=== PATIENT | female | born 1965 | race Caucasian/White ===

== ENCOUNTER → 2017-01-26 | Outpatient (CLI) | payer BC ==
[2017-01-26 10:54] LABS: CHLORIDE,CL 107 mmol/L (98-110); SODIUM,NA 142 mmol/L (136-146)
== END ==
LOC: MW.CHFP 09:49
PROVIDERS: ATTEND Family Medicine
DX: Z00.00 Encounter for general adult medical examination without abnormal findings (principal); D64.9 Anemia, unspecified; E53.8 Deficiency of other specified B group vitamins; Z98.890 Other specified postprocedural states; Z86.39 Personal history of other endocrine, nutritional and metabolic disease
CPT/HCPCS: 36415; 80053; 80061; 82607; 82652; 82746; 83036; 83550; 84443; 85027

== ENCOUNTER → 2017-02-08 | Outpatient (CLI) | payer BC ==
--- NOTE | 2017-02-08 14:22 | CT ---
CT of the abdomen and pelvis without contrast. HISTORY: Pain TECHNIQUE: Axial CT images were obtained of the abdomen and pelvis without contrast. Coronal and sag ittal reconstructions obtained. FINDINGS: The lung bases are clear, no pleural effusion. The liver, spleen, and pancreas appear unremarkable for noncontrast examination. There is a 2.8 x 1 .8 cm left adrenal adenoma. Cholelithiasis without evidence of cholecystitis. There is no bulky retr operitoneal lymphadenopathy. No abdominal ascites. Postsurgical changes are noted secondary to gastr ic bypass. There are several small fat-containing midline ventral hernias noted. There are no calcifications noted within the kidneys or along the courses of the ureters bilaterally . The large and small bowel are normal in caliber without evidence of obstruction. The appendix appear s normal. There is no bulky pelvic lymphadenopathy. No free fluid. No free air. The urinary bladder appears normal. Mild bilateral sacroiliitis. Mild degenerative changes noted within the lower lumbar spine. IMPRESSION: 1. No acute findings within the abdomen or pelvis. 2. Postsurgical changes noted secondary to gastric bypass. 3. There are 2 midline small ventral fat-containing hernias. 4. Cholelithiasis without evidence of cholecystitis. Line 5. Small left adrenal adenoma.
== END | disposition home or self-care (01) ==
LOC: MW.DI 12:47
PROVIDERS: ATTEND Family Medicine
DX: R10.9 Unspecified abdominal pain (principal); K43.2 Incisional hernia without obstruction or gangrene; K80.20 Calculus of gallbladder without cholecystitis without obstruction; D35.00 Benign neoplasm of unspecified adrenal gland; Z98.84 Bariatric surgery status
CPT/HCPCS: 74176; 74176-26

== ENCOUNTER → 2017-02-09 | Outpatient (CLI) | payer BC ==
[2017-02-19 16:08] LABS: HPV 16 Not Detected (NOTDET); HPV 18 Not Detected (NOTDET)
== END ==
LOC: MW.CHFP 10:00
PROVIDERS: ATTEND Family Medicine
DX: Z00.00 Encounter for general adult medical examination without abnormal findings (principal); E11.9 Type 2 diabetes mellitus without complications
CPT/HCPCS: 87624; 93005; G0145

== ENCOUNTER → 2017-02-14 | Outpatient (CLI) | payer BC ==
--- NOTE | 2017-02-14 14:45 | MY ---
EXAMINATION: Bilateral digital mammography utilizing CAD. HISTORY: Screening exam. No comparisons. FINDINGS: Bilateral scattered fibroglandular densities. No suspicious calcifications, masses or ar chitectural distortions. No pathologic appearing lymph nodes, no abnormal skin thickening or nippl e inversion. CAD highlighted regions appear normal at this time. IMPRESSION: BI-RADS category I - negative mammogram. Continued screening according to ACR-ACS gu idelines suggested. THE FALSE-NEGATIVE RATE OF MAMMOGRAM IS APPROXIMATELY 10%. MANAGEMENT OF A PALPABLE ABNORMALITY MUST BE BASED UPON CLINICAL GROUNDS. SENSITIVITY FOR DETECTION OF ABNORMALITIES IN DENSE BREASTS IS LOW. NOTE: A letter will be sent to the patient regarding findings. [facility] [place] [phone] - FAX [phone]
== END ==
LOC: MW.MAM 09:09
PROVIDERS: ATTEND Family Medicine
DX: Z12.31 Encounter for screening mammogram for malignant neoplasm of breast (principal)
CPT/HCPCS: G0202; G0202-26

== ENCOUNTER → 2017-02-16 | Outpatient (CLI) | payer BC | LOC: MW.CHFP 14:22 | PROVIDERS: ATTEND Family Medicine | DX: D35.02 Benign neoplasm of left adrenal gland (principal) | CPT/HCPCS: 82384; 83835 ==

== ENCOUNTER 2018-12-02 07:33 | Inpatient (IN) | payer BC ==
[~2018-12-02 07:33] MED LIST: Acetaminophen 1,000 MG in Premix Bag 1 BAG IV SCH; Famotidine 20 MG/2 ML SDV IVPUSH SCH; Ketorolac 30 MG/ML SDV IVPUSH SCH; Ropivacaine 49.25 ML, Ketorolac 30 MG, EPINEPHrine 0.5 MG, cloNIDine 80 MCG in Sodium C... INJECT SCH; Scopolamine 1.5 MG Transdermal Patch TRDERM SCH
[2018-12-02] MEDS ORDERED: Tranexamic Acid 2,000 MG in Sodium Chloride 0.9% 100 ML IV ONE (08:00)
[2018-12-02] MEDS ORDERED: Ropivacaine 49.25 ML, Ketorolac 30 MG, EPINEPHrine 0.5 MG in Sodium Chloride 0.9% 49.25 ML INJECT SCH (08:00)
[2018-12-02] MEDS: Lactated Ringers 1,000 ML IV SCH ×2 (08:06→21:29)
[2018-12-02] MEDS ORDERED: Ondansetron 4 MG/2 ML SDV ONE (08:24)
[2018-12-02] MEDS ORDERED: fentaNYL 100 MCG/2 ML SDV ONE (08:24)
[2018-12-02] MEDS ORDERED: Midazolam 1 MG/ML 2 ML SDV ONE (08:24)
[2018-12-02] MEDS ORDERED: Dexamethasone 4 MG/ML 5 ML MDV ONE (08:24)
[2018-12-02] MEDS ORDERED: Lidocaine 2% 5 ML SDV ONE (08:24)
[2018-12-02] MEDS ORDERED: Ketorolac 30 MG/ML SDV ONE (08:24)
[2018-12-02] MEDS ORDERED: Propofol 200 MG/20 ML SDV ONE (08:25)
--- NOTE | 2018-12-02 08:46 | PCM.PREANE ---
Preanesthetic Assessment - Anesthesia/Transfusion/Family Hx Anesthesia History: Prior Anesthesia Without Reaction Family History of Anesthesia Reaction: No Transfusion History: No Prior Transfusion(s) Intubation History: Unknown - Review of Systems General: No Symptoms Pulmonary: No Symptoms Cardiovascular: No Symptoms Gastrointestinal: No Symptoms Neurological: No Symptoms Other: Reports: None - Physical Assessment O2 Sat by Pulse Oximetry: 96 Respiratory Rate: 16 Vital Signs: Last Vital Signs Temp 36.3 C 12/02/18 08:10 Pulse 66 12/02/18 08:10 Resp 16 12/02/18 08:10 BP 134/65 12/02/18 08:10 Pulse Ox 96 12/02/18 08:10 Height: 1.63 m Weight: 96.615 kg ASA Class: 3 Mental Status: Alert & Oriented x3 Airway Class: Mallampati = 3 Dentition: Reports: Dentures (upper) Thyro-Mental Finger Breadths: 2 Mouth Opening Finger Breadths: 3 ROM/Head Extension: Full Lungs: Clear to Auscultation, Normal Respiratory Effort Cardiovascular: Regular Rate, Regular Rhythm - Allergies Allergies/Adverse Reactions: Allergies Allergy/AdvReac Type Severity Reaction Status Date / Time No Known Allergies Allergy Verified 12/02/18 08:36 - Blood Blood Available: No - Anesthesia Plan Pre-Op Medication Ordered: None - Acknowledgements Anesthesia Type Planned: Spinal (general anesthesia back-up) Pt an Appropriate Candidate for the Planned Anesthesia: Yes Alternatives and Risks of Anesthesia Discussed w Pt/Guardian: Yes Pt/Guardian Understands and Agrees with Anesthesia Plan: Yes PreAnesthesia Questionnaire HEENT History: Reports: Other (See Below) Other HEENT History: uses reading glasses, has upper denture Cardiovascular History: Reports: None Respiratory History: Reports: Sleep Apnea Other Respiratory History: uses CPAP Gastrointestinal History: Reports: None Other Gastrointestinal History: GERD before weight loss- not now, has 2 abdominal incisional hernias, and ulcers Genitourinary History: Reports: None TANK HOOP BENDER History: Reports: Musculoskeletal History: Reports: Osteoarthritis Other Musculoskeletal History: hx of fx left wrist Neurological History: Reports: Concussion, Other (See Below) Other Neuro History: hx of motion sickness Psychiatric History: Reports: Depression Endocrine/Metabolic History: Reports: Obesity/BMI 30+ Other Endocrine/Metabolic History: denies diabetes Hematologic History: Reports: Anemia, B12 Deficiency Other Hematologic History: B12 deficiency in the past, currently iron deficient , just started iron supplement Immunologic History: Reports: None Oncologic (Cancer) History: Reports: None Dermatologic History: Reports: None - Infectious Disease History Infectious Disease History: Reports: Chicken Pox - Past Surgical History Head Surgeries/Procedures: Reports: None HEENT Surgical History: Reports: Tonsillectomy Cardiovascular Surgical History: Reports: None Respiratory Surgical History: Reports: None GI Surgical History: Reports: Bariatric Procedure Other GI Surgeries/Procedures: gastric bypass Female Surgical History: Reports: Section, Hysterectomy, Tubal Ligation Endocrine Surgical History: Reports: None Neurological Surgical History: Reports: None Musculoskeletal Surgical History: Reports: Knee Replacement (right 07/25), Other (See Below) Other Musculoskeletal Surgeries/Procedures:: Right RTCR Oncologic Surgical History: Reports: None - SUBSTANCE USE Smoking Status *Q: Current Every Day Smoker (1 10/09 ppd) Tobacco Use Within Last Twelve Months: Cigarettes Recreational Drug Use History: No - HOME MEDS Home Medications: Home Meds Ferrous Sulfate [Iron] 325 mg PO DAILY 08/07/18 [History] Acetaminophen/oxyCODONE [Percocet 325-5 MG] 1 - 2 tab PO Q4H PRN #60 tablet 03/25 [Rx] Cyanocobalamin (Vitamin B12) [Vitamin B12] 0.8 mg PO DAILY 11/27/18 [History] - CURRENT (IN HOUSE) MEDS Current Meds: Current Medications Famotidine (Pepcid) 40 mg IVPUSH ONARRIVE [facility] Last Admin: 12/02/18 08:07 Dose: 40 mg Acetaminophen 1,000 mg/ Premix 100 mls @ 400 mls/hr IV ONARRIVE [facility] Last Admin: 12/02/18 08:10 Dose: 400 mls/hr Lactated Ringer's (Ringers, Lactated) 1,000 mls @ 100 mls/hr IV ASDIRECTED [facility] Last Admin: 12/02/18 08:06 Dose: 100 mls/hr Ropivacaine 49.25 ml/Ketorolac Tromethamine 30 mg/Epinephrine HCl 0.5 mg/ Sodium Chloride 100 mls @ 3,000 mls/hr INJECT ASDIRECTED [facility] Ketorolac Tromethamine (Toradol) 30 mg IVPUSH ONARRIVE [facility] Last Admin: 12/02/18 08:08 Dose: 30 mg Scopolamine (Transderm-Scop) 1.5 mg TRDERM ONARRIVE [facility] Last Admin: 12/02/18 08:06 Dose: 1.5 mg Discontinued Medications Dexamethasone (Dexamethasone) Confirm Administered Dose 20 mg .ROUTE .STK-MED ONE Stop: 12/02/18 08:25 Fentanyl (Sublimaze) Confirm Administered Dose 100 mcg .ROUTE .STK-MED ONE Stop: 12/02/18 08:25 Ropivacaine 49.25 ml/Ketorolac Tromethamine 30 mg/Epinephrine HCl 0.5 mg/ Clonidine HCl 80 mcg/ Sodium Chloride 100 mls @ 50 mls/sec INJECT ASDIRECTED [facility] Tranexamic Acid 2,000 mg/ (Sodium Chloride) 120 mls @ 600 mls/hr IV ASDIRECTED ONE Stop: 12/02/18 08:11 Ketorolac Tromethamine (Toradol) Confirm Administered Dose 30 mg .ROUTE .STK- MED ONE Stop: 12/02/18 08:25 Lidocaine (Xylocaine-Mpf 2%) Confirm Administered Dose 5 ml .ROUTE .STK-MED ONE Stop: 12/02/18 08:25 Midazolam HCl (Versed 1 Mg/Ml) Confirm Administered Dose 2 mg .ROUTE .STK-MED ONE Stop: 12/02/18 08:25 Ondansetron HCl (Zofran) Confirm Administered Dose 8 mg .ROUTE .STK-MED ONE Stop: 12/02/18 08:25 Propofol (Diprivan 20 Ml) Confirm Administered Dose 600 mg .ROUTE .STK-MED ONE Stop: 12/02/18 08:26
[2018-12-02] MEDS ORDERED: Bisacodyl 10 MG Supp RECTAL PRN (11:19)
[2018-12-02] MEDS ORDERED: Sodium Chloride 0.9% 10 ML Syringe FLUSH PRN (11:19)
[2018-12-02] MEDS ORDERED: Aluminum Hydroxide/Magnesium Hydroxide/Simethicone Susp 30 ML Cup PO PRN (11:19)
[2018-12-02] MEDS ORDERED: Sodium Chloride 0.9% 2.5 ML Syringe FLUSH PRN (11:19)
[2018-12-02] MEDS ORDERED: diphenhydrAMINE 25 MG Cap PO PRN (11:19)
[2018-12-02] MEDS ORDERED: Ondansetron 4 MG/2 ML SDV IVPUSH PRN ×2 (11:19→11:24)
[2018-12-02] MEDS ORDERED: Docusate Sodium 100 MG Cap PO PRN (11:19)
[2018-12-02] MEDS ORDERED: Meperidine PF 25 MG/ML Syringe IVPUSH PRN (11:24)
[2018-12-02] MEDS ORDERED: Metoclopramide 10 MG/2 ML SDV IVPUSH PRN (11:24)
[2018-12-02] MEDS ORDERED: Morphine 4 MG/ML Syringe IVPUSH PRN (11:24)
[2018-12-02] MEDS ORDERED: hydrALAZINE 20 MG/ML SDV IVPUSH PRN ×2 (11:24)
[2018-12-02] MEDS ORDERED: HYDROmorphone 2 MG/ML SDV IVPUSH PRN (11:24)
[2018-12-02] MEDS ORDERED: Naloxone 0.4 MG/ML Syringe IVPUSH PRN (11:24)
[2018-12-02] MEDS ORDERED: Meperidine PF 25 MG/ML Syringe IV PRN (11:24)
[2018-12-02] MEDS ORDERED: Acetaminophen/HYDROcodone 325-5 MG Tab PO PRN (11:24)
[2018-12-02] MEDS ORDERED: Albuterol 0.083% 2.5 MG/3 ML Neb Soln NEB PRN (11:24)
[2018-12-02] MEDS ORDERED: Atropine 0.1 MG/ML 10 ML Syringe IVPUSH PRN (11:24)
[2018-12-02] MEDS ORDERED: Labetalol 20 MG/4 ML Syringe IVPUSH PRN (11:24)
[2018-12-02] MEDS ORDERED: Promethazine 25 MG/ML SDV IM PRN (11:24)
[2018-12-02] MEDS ORDERED: Scopolamine 1.5 MG Transdermal Patch TRDERM PRN (11:24)
[2018-12-02] MEDS ORDERED: fentaNYL 100 MCG/2 ML SDV IVPUSH PRN (11:24)
[2018-12-02] MEDS ORDERED: Ketorolac 30 MG/ML SDV IVPUSH SCH (11:30)
[2018-12-02] MEDS ORDERED: Acetaminophen 1,000 MG in Premix Bag 1 BAG IV SCH (11:30)
--- NOTE | 2018-12-02 11:58 | PCM.OPNOTE ---
- General Post-Op/Procedure Note Date of Surgery/Procedure: 12/02/18 Operative Procedure(s): L TKA Post-Op Diagnosis: DJD left knee Anesthesia Technique: Moderate Sedation, Spinal Primary Surgeon: Yaneth Wall Splunk Architect: Alessia Escobedo Splunk Architect: Trini [place] EBL in mLs: 50 Condition: Good Free Text/Narrative:: tt=41 min #[id number]
[2018-12-02] MEDS: Morphine PF 30 MG/30 ML PCA Vial IV PRN ×2 (12:06→21:35)
[2018-12-02] MEDS: ceFAZolin 2 GM in Premix Bag 1 BAG IV SCH ×3 (13:17→18:33)
[2018-12-02] MEDS: Ketorolac 30 MG/ML SDV IVPUSH SCH ×2 (14:05→18:30)
[2018-12-02] MEDS: Acetaminophen 1,000 MG in Premix Bag 1 BAG IV SCH ×2 (14:05→18:30)
--- NOTE | 2018-12-02 14:10 | OR ---
SURGEON: Yaneth Wall MD DATE OF PROCEDURE: 12/02/2018 PREOPERATIVE DIAGNOSIS: Degenerative joint disease, left knee, tricompartmental. POSTOPERATIVE DIAGNOSIS: Degenerative joint disease, left knee, tricompartmental. PROCEDURE: Left total knee arthroplasty using patient specific instrumentation. ASSISTANTS: 1. Alessia Escobedo PA-C. 2. DAVID Davey. ANESTHESIA: Spinal with sedation. ESTIMATED BLOOD LOSS: 50 mL. TOURNIQUET TIME: 41 minutes. COMPLICATIONS: None. DVT PROPHYLAXIS: PAS boot and TAIWO hose to the nonoperative leg. IMPLANTS USED: [employer] femoral component size 9 narrow (LPS), tibial component size E, 10-mm all-polyethylene articular surface, and 32-mm all-polyethylene patella. FINDINGS: Intraoperative findings showed grade 4 chondromalacia in all 3 compartments. Osteophyte formation was also noted. She did have a subchondral cyst noted along the posterior aspect of the tibial plateau, which was curetted and filled with cement. It measured approximately 5 mm x 7 mm. BRIEF HISTORY: Jackie is a 53-year-old female who has had complaint of progressive left knee pain. She has previously undergone a right total knee arthroplasty and has done well. Due to her lack of response to conservative treatment, I did recommend surgical intervention. The risks and goals of procedure were discussed with the patient and were documented preoperatively. She agreed to proceed. DESCRIPTION OF PROCEDURE: The patient was properly identified and brought to the operating room. The patient was then transferred from the operating room cart and placed on the operating table in a supine position. Anesthesia was administered by the anesthesia staff. After adequate anesthesia was obtained, a well-padded tourniquet was applied to the surgical lower extremity. Frausto catheter was placed. The lower extremity was then prepped in standard fashion using ChloraPrep solution. It was then sterilely draped. A time-out was performed to ensure correct site and procedure. Preoperative antibiotics were given along with one gram of tranexamic acid IV. The surgical site had been marked preoperatively. An Esmarch was used to exsanguinate the right lower extremity and the tourniquet was inflated. An incision was made over the anterior aspect of the knee. The subcutaneous tissues were dissected down to the level of the fascia. A medial parapatellar approach to the knee was made. A portion of the infrapatellar fat pad was then excised. The distal femur was then exposed. The femoral patient-specific cutting guide was then placed. Pins were also placed. The distal femoral cutting block was placed and the distal femoral cut was made. Instrumentation was then removed. Both Whitesides' line and the epicondylar axis were then marked with electrocautery. The 4-in-1 cutting block was placed. This was placed in a slightly externally rotated position, which corresponded well with the previously drawn lines. The cutting guide was then pinned into position. An Gallito wing guide was used to check the depth of resection of our anterior condylar cut and it was felt that no notching would occur. The anterior condylar cut was then made followed by the posterior condylar cut. Both the posterior chamfer and anterior chamfer cuts were then made. The cutting block was then removed along with the excess bony remnants. We then turned our attention to the tibia. The anterior cruciate ligament and posterior cruciate ligament were released and a posterior cruciate ligament retractor was placed to allow the tibia to be pulled anteriorly. The tibial patient-specific guide was then placed on the proximal tibia. This fit anatomically. The pins were then placed. The proximal tibia cutting guide was then placed and screwed into position. The proximal tibial resection was then made with care being taken to protect the patellar tendon. The bony resection was then removed. The remainder of the medial and lateral meniscus were then excised. Care was taken to protect the popliteus tendon. The tibia was then sized to the appropriate size. The distal femur was then elevated. The posterior capsule was stripped off the distal femur both medially and laterally. The posterior capsule along with the medial and lateral gutters were then injected with a standard mixture consisting of clonidine, epinephrine, Toradol, and Ropivacaine, unless any allergies were found preoperatively. The femoral component was then placed onto the distal femur in a slightly lateral position. This fit the femur well. A box cut was then made without difficulty. This was then removed. The tibial trial along with the polyethylene liner was then placed. The knee came easily into full extension and was stable to varus and valgus stressing both in full extension and flexion. Any additional releases were performed at this time. We then returned our attention to the patella. The patella was everted and towel clamps were used to hold the patella in position. It was resected to a 15 millimeter thickness. It was then sized to the appropriate size. It was prepared in the usual fashion after placing the predetermined size clamps. This was placed in a slightly superior and medial position. The clamp was then removed. The patellar trial button was placed. The knee was taken through a range of motion using the no-touch technique. The patella tracked centrally. A drop paulette was then placed to check alignment. All instruments were then removed from the knee. The tibial sizer was then placed on the tibia. The tibia was prepared in the usual fashion using the reamer and broach. This was then removed. All bony surfaces were copiously irrigated with Pulsavac solution. They were then suctioned dry. Cement was prepared on the back table in the usual manner. Once it was prepared, the bone ends were again suctioned dry. The tibia was cemented into place first. This was malleted into position. Excess cement was then cleared. The femur was then placed in a similar manner. We placed the polyethylene trial into place and the knee was brought into full extension. An axial load was placed while keeping the knee in full extension. The patella button was also cemented into position and the clamp was used to hold this in place as the cement was allowed to cure. The wound was again copiously irrigated with saline solution using a Pulsavac floorperson. Following this 1 g of tranexamic acid was applied to the wound topically. After we had adequate curing of the cement, the knee was again taken through a range of motion. The size of the polyethylene was then determined. The polyethylene trial was then removed. The tibial tray was suctioned to make sure there was no remaining soft tissue or cement. Excess cement was cleared from around the edges of the prosthesis as well. The tourniquet was then deflated. We were able to observe for any excess bleeding and none was noted. Electrocautery was used to maintain hemostasis. An additional gram of tranexamic acid was given IV. The retractors were again placed and the predetermined polyethylene was then placed. This was locked into position without difficulty. The knee was again taken through a range of motion with no change from the prior exam. The fascial layer was closed with Number One Vicryl. The subcutaneous tissues were closed with 2-0 Vicryl. The skin was closed with sol. Xeroform gauze was placed over the wound and a bulky dressing was applied. The patient was then awakened from anesthesia and transferred back to the operating room cart. They were brought to the recovery room in stable condition. All needle and sponge counts were correct. NEIDA / NATASHA /[id number]
--- NOTE | 2018-12-02 15:06 | PCM.CONS ---
H&P History of Present Illness - General Date of Service: 12/02/18 Admit Problem/Dx: Admission Diagnosis/Problem Admission Diagnosis/Problem Left knee pain - History of Present Illness Initial Comments - Free Text/Narative: Consulted for medical management of DM and HTN. Pt denies having any HTN or DM2 and denies being on any medications. Shall get a HA1C to confirm and monitor pts BP to ensure no acute elevation. - Related Data Allergies/Adverse Reactions: Allergies Allergy/AdvReac Type Severity Reaction Status Date / Time No Known Allergies Allergy Verified 12/02/18 08:36 Home Medications: Home Meds Ferrous Sulfate [Iron] 325 mg PO DAILY 08/07/18 [History] Acetaminophen/oxyCODONE [Percocet 325-5 MG] 1 - 2 tab PO Q4H PRN #60 tablet 03/25 [Rx] Cyanocobalamin (Vitamin B12) [Vitamin B12] 0.8 mg PO DAILY 11/27/18 [History] Past Medical History HEENT History: Reports: Other (See Below) Other HEENT History: uses reading glasses, has upper denture Cardiovascular History: Reports: None Respiratory History: Reports: Sleep Apnea Other Respiratory History: uses CPAP Gastrointestinal History: Reports: None Other Gastrointestinal History: GERD before weight loss- not now, has 2 abdominal incisional hernias, and ulcers Genitourinary History: Reports: None 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: Musculoskeletal History: Reports: Osteoarthritis Other Musculoskeletal History: hx of fx left wrist Neurological History: Reports: Concussion, Other (See Below) Other Neuro History: hx of motion sickness Psychiatric History: Reports: Depression Endocrine/Metabolic History: Reports: Obesity/BMI 30+ Other Endocrine/Metabolic History: denies diabetes Hematologic History: Reports: Anemia, B12 Deficiency Other Hematologic History: B12 deficiency in the past, currently iron deficient , just started iron supplement Immunologic History: Reports: None Oncologic (Cancer) History: Reports: None Dermatologic History: Reports: None - Infectious Disease History Infectious Disease History: Reports: Chicken Pox - Past Surgical History Head Surgeries/Procedures: Reports: None HEENT Surgical History: Reports: Tonsillectomy Cardiovascular Surgical History: Reports: None Respiratory Surgical History: Reports: None GI Surgical History: Reports: Bariatric Procedure Other GI Surgeries/Procedures: gastric bypass Female Surgical History: Reports: Section, Hysterectomy, Tubal Ligation Endocrine Surgical History: Reports: None Neurological Surgical History: Reports: None Musculoskeletal Surgical History: Reports: Knee Replacement (right 07/25), Other (See Below) Other Musculoskeletal Surgeries/Procedures:: Right RTCR Oncologic Surgical History: Reports: None Social & Family History - Tobacco Use Smoking Status *Q: Current Every Day Smoker (1 1/2 ppd) Years of Tobacco use: 40 Packs/Tins Daily: 1.5 - Recreational Drug Use Recreational Drug Use: No Drug Use in Last 12 Months: No H&P Review of Systems - Review of Systems: Review Of Systems: See Below Exam - Exam Exam: See Below - Vital Signs Vital Signs: Last Vital Signs Temp 36 C 12/02/18 11:34 Pulse 52 L 12/02/18 12:45 Resp 15 12/02/18 12:45 BP 137/70 12/02/18 12:45 Pulse Ox 100 12/02/18 12:45 Weight: 96.615 kg - Exam Lungs: Clear to Auscultation, Normal Respiratory Effort Cardiovascular: Regular Rate, Regular Rhythm - Patient Data Lab Results Last 24 hrs: Laboratory Results - last 24 hr 12/02/18 12/02/18 Range/Units 08:10 11:51 POC Glucose 110 (60-110) mg/dL Blood Type O POSITIVE Antibody Screen NEGATIVE Consult PN Assessment/Plan Procedures: Procedures ASSAY OF FOLIC ACID SERUM (07/25/18) ASSAY OF IRON (01/07/18) ASSAY OF MAGNESIUM (01/07/18) ASSAY OF METANEPHRINES (02/16/17) ASSAY THREE CATECHOLAMINES (02/16/17) ASSAY THYROID STIM HORMONE (01/26/17) CHEST X-RAY 2VW FRONTAL&LATL (11/29/15) COMPLETE CBC AUTOMATED (01/26/17) COMPLETE CBC W/AUTO DIFF WBC (11/12/18) COMPREHEN METABOLIC PANEL (11/12/18) CT ABD & PELV W/CONTRAST (12/15/15) CT ABD & PELVIS W/O CONTRAST (02/08/17) CT THORAX W/DYE (12/15/15) ELECTROCARDIOGRAM TRACING (11/12/18) EMERGENCY DEPT VISIT (11/29/15) EXTREMITY STUDY (10/04/18) GLYCOSYLATED HEMOGLOBIN TEST (11/12/18) IRON BINDING TEST (07/25/18) LIPID PANEL (01/26/17) METABOLIC PANEL TOTAL CA (01/07/18) MRI JNT OF LWR EXTRE W/O DYE (11/05/18) PROTHROMBIN TIME (11/12/18) PT EVAL LOW COMPLEX 20 MIN (09/05/18) ROUTINE VENIPUNCTURE (11/12/18) TB TEST CELL IMMUN MEASURE (11/29/15) THERAPEUTIC EXERCISES (10/24/18) UR ALBUMIN SEMIQUANTITATIVE (07/25/18) URINALYSIS AUTO W/O SCOPE (07/25/18) URINALYSIS AUTO W/SCOPE (11/12/18) VASOPNEUMATIC DEVICE THERAPY (10/24/18) VIT D 1 25-DIHYDROXY (07/25/18) VITAMIN B-12 (07/25/18) X-RAY EXAM CHEST 2 VIEWS (11/12/18) X-RAY EXAM OF ANKLE (10/30/18) X-RAY EXAM OF KNEE 1 OR 2 (04/30/18) X-RAY EXAM OF KNEE 3 (08/23/18) Problem List Initiated/Reviewed/Updated: Yes Consult Result/Summary:: 53 year old female with a TKA conducted today on consult for assessment and control of type 2 diabetes and hypertension. -Patient denying any history of type 2 diabetes and hypertension, states that she is not on any medications for the comorbidities. -Shall get a hemoglobin A1c to assess the patient's blood sugar checks and determine management after those results. For the patient's hypertension she'll continue to monitor the blood pressures and control as needed.
[2018-12-02] MEDS: oxyCODONE 5 MG Tab PO PRN ×2 (16:01→21:30)
--- NOTE | 2018-12-02 16:24 | CR ---
EXAMINATION: Left knee HISTORY: Arthroplasty COMPARISON: 08/23/2018 TECHNIQUE: 2 views FINDINGS/IMPRESSION: Postoperative films demonstrate left total knee hardware in good position and alignment. Postoperative soft tissue changes are noted.
[2018-12-02 16:52] LABS: HEMOGLOBIN A1C 6.1 % (4.5-6.2)
[2018-12-02] MEDS ORDERED: ceFAZolin 2 GM in Premix Bag 1 BAG IV ONE (23:57)
[2018-12-03] MEDS: Acetaminophen 1,000 MG in Premix Bag 1 BAG IV SCH (00:35)
[2018-12-03] MEDS: Ketorolac 30 MG/ML SDV IVPUSH SCH (01:40)
[2018-12-03] MEDS ORDERED: ceFAZolin 2 GM in Premix Bag 1 BAG IV ONE (02:30)
[2018-12-03 05:38] LABS: CHLORIDE,CL 101 mmol/L (98-107); SODIUM,NA 135 mmol/L (136-145)
[2018-12-03] MEDS ORDERED: Morphine 2 MG/ML Syringe IVPUSH PRN (06:00)
--- NOTE | 2018-12-03 07:14 | PCM.SURGPN ---
- General Info Date of Service: 12/03/18 Date of Surgery/Procedure: 12/02/18 POD#: 1 Functional Status: Reports: Pain Controlled, Tolerating Diet, Ambulating, Urinating - Review of Systems General: Reports: No Symptoms Pulmonary: Reports: No Symptoms Cardiovascular: Reports: No Symptoms Gastrointestinal: Reports: No Symptoms Systems Review Comment:: pt up to chair tolerating PO intake well some nausea post-op but has resolved overnight pain relatively well controlled with PO pain medications no specific concerns today - Patient Data Vitals - Most Recent: Last Vital Signs Temp 98.6 F 12/03/18 03:34 Pulse 55 L 12/03/18 03:34 Resp 18 12/03/18 03:34 BP 119/59 L 12/03/18 03:34 Pulse Ox 94 L 12/03/18 03:34 Weight - Most Recent: 96.615 kg I&O - Last 24 Hours: Intake & Output 12/02/18 12/03/18 12/03/18 22:59 06:59 14:59 Intake Total 270 500 Output Total 730 1000 Balance -460 -500 Lab Results Last 24 Hrs: Laboratory Results - last 24 hr 12/02/18 12/02/18 12/02/18 Range/Units 08:10 08:10 11:51 WBC (4.0-11.0) K/uL RBC (4.30-5.90) M/uL Hgb (12.0-16.0) g/dL Hct (36.0-46.0) % MCV (80.0-98.0) fL MCH (27.0-32.0) pg MCHC (31.0-37.0) g/dL RDW Std Deviation (28.0-62.0) fl RDW Coeff of Milly (11.0-15.0) % Plt Count (150-400) K/uL MPV (7.40-12.00) fL Neut % (Auto) (48.0-80.0) % Lymph % (Auto) (16.0-40.0) % Greer % (Auto) (0.0-15.0) % Eos % (Auto) (0.0-7.0) % Baso % (Auto) (0.0-1.5) % Neut # (Auto) (1.4-5.7) K/uL Lymph # (Auto) (0.6-2.4) K/uL Greer # (Auto) (0.0-0.8) K/uL Eos # (Auto) (0.0-0.7) K/uL Baso # (Auto) (0.0-0.1) K/uL Nucleated RBC % /100WBC Nucleated RBCs # K/uL Sodium (136-145) mmol/L Potassium (3.5-5.1) mmol/L Chloride (98-107) mmol/L Carbon Dioxide (21.0-32.0) mmol/L BUN (7.0-18.0) mg/dL Creatinine (0.6-1.0) mg/dL Est Cr Clr Drug Dosing mL/min Estimated GFR (MDRD) ml/min Glucose (74-106) mg/dL POC Glucose 110 (60-110) mg/dL Hemoglobin A1c 6.1 (4.5-6.2) % Calcium (8.5-10.1) mg/dL Total Bilirubin (0.2-1.0) mg/dL AST (15-37) IU/L ALT (14-63) IU/L Alkaline Phosphatase (46-116) U/L Total Protein (6.4-8.2) g/dL Albumin (3.4-5.0) g/dL Globulin (2.6-4.0) g/dL Albumin/Globulin Ratio (0.9-1.6) Blood Type O POSITIVE Antibody Screen NEGATIVE 12/02/18 12/03/18 12/03/18 Range/Units 18:00 05:10 05:10 WBC 13.09 H (4.0-11.0) K/uL RBC 4.46 (4.30-5.90) M/uL Hgb 11.8 L (12.0-16.0) g/dL Hct 36.3 (36.0-46.0) % MCV 81.4 (80.0-98.0) fL MCH 26.5 L (27.0-32.0) pg MCHC 32.5 (31.0-37.0) g/dL RDW Std Deviation 42.1 (28.0-62.0) fl RDW Coeff of Milly 14 (11.0-15.0) % Plt Count 210 (150-400) K/uL MPV 9.60 (7.40-12.00) fL Neut % (Auto) 84.4 H (48.0-80.0) % Lymph % (Auto) 8.2 L (16.0-40.0) % Greer % (Auto) 7.3 (0.0-15.0) % Eos % (Auto) 0.0 (0.0-7.0) % Baso % (Auto) 0.1 (0.0-1.5) % Neut # (Auto) 11.1 H (1.4-5.7) K/uL Lymph # (Auto) 1.1 (0.6-2.4) K/uL Greer # (Auto) 1.0 H (0.0-0.8) K/uL Eos # (Auto) 0.0 (0.0-0.7) K/uL Baso # (Auto) 0.0 (0.0-0.1) K/uL Nucleated RBC % 0.0 /100WBC Nucleated RBCs # 0 K/uL Sodium 135 L (136-145) mmol/L Potassium 4.2 (3.5-5.1) mmol/L Chloride 101 (98-107) mmol/L Carbon Dioxide 25.4 (21.0-32.0) mmol/L BUN 14 (7.0-18.0) mg/dL Creatinine 0.9 (0.6-1.0) mg/dL Est Cr Clr Drug Dosing 60.99 mL/min Estimated GFR (MDRD) > 60.0 ml/min Glucose 147 H (74-106) mg/dL POC Glucose 178 H (60-110) mg/dL Hemoglobin A1c (4.5-6.2) % Calcium 8.8 (8.5-10.1) mg/dL Total Bilirubin 0.2 (0.2-1.0) mg/dL AST 19 (15-37) IU/L ALT 14 (14-63) IU/L Alkaline Phosphatase 84 (46-116) U/L Total Protein 5.7 L (6.4-8.2) g/dL Albumin 2.7 L (3.4-5.0) g/dL Globulin 3.0 (2.6-4.0) g/dL Albumin/Globulin Ratio 0.9 (0.9-1.6) Blood Type Antibody Screen Med Orders - Current: Current Medications Al Hydroxide/Mg Hydroxide (Mag-Al Plus) 30 ml PO Q4H PRN PRN Reason: Indigestion Albuterol (Proventil Neb Soln) 2.5 mg NEB Q6HRRT PRN PRN Reason: Wheezing Aspirin (Aspirin) 325 mg PO BID [facility] Bisacodyl (Dulcolax) 10 mg RECTAL DAILY PRN PRN Reason: Constipation Celecoxib (Celebrex) 200 mg PO BID [facility] Cyanocobalamin (Vitamin B12) 800 mcg PO DAILY [facility] Diphenhydramine HCl (Benadryl) 25 - 50 mg PO Q6H PRN PRN Reason: Itching Docusate Sodium (Colace) 100 mg PO BID PRN PRN Reason: Constipation Famotidine (Pepcid) 40 mg PO DAILY [facility] Ferrous Sulfate (Ferrous Sulfate) 325 mg PO DAILY [facility] Lactated Ringer's (Ringers, Lactated) 1,000 mls @ 100 mls/hr IV ASDIRECTED [facility] Last Admin: 12/02/18 21:29 Dose: 100 mls/hr Morphine Sulfate (Morphine) 1 - 3 mg IVPUSH Q3H PRN PRN Reason: Pain Ondansetron HCl (Zofran) 4 mg IVPUSH Q6H PRN PRN Reason: Nausea/Vomiting Oxycodone/Acetaminophen (Percocet 325-5 Mg) 1 - 2 tab PO Q4H PRN PRN Reason: Pain Polyethylene Glycol (Miralax) 17 gm PO DAILY [facility] Scopolamine (Transderm-Scop) 1.5 mg TRDERM ONARRIVE [facility] Last Admin: 12/02/18 08:06 Dose: 1.5 mg Sodium Chloride (Saline Flush) 10 ml FLUSH ASDIRECTED PRN PRN Reason: Keep Vein Open Sodium Chloride (Saline Flush) 2.5 ml FLUSH ASDIRECTED PRN PRN Reason: Keep Vein Open Discontinued Medications Hydrocodone Bitart/Acetaminophen (Marcellus 325-5 Mg) 2 tab PO Q6H PRN PRN Reason: Pain (moderate 4-6) Atropine Sulfate (Atropine 0.1 Mg/Ml) 0.4 mg IVPUSH Q5M PRN PRN Reason: Bradycardia Dexamethasone (Dexamethasone) Confirm Administered Dose 20 mg .ROUTE .STK-MED ONE Stop: 12/02/18 08:25 Famotidine (Pepcid) 40 mg IVPUSH ONARRIVE [facility] Last Admin: 12/02/18 08:07 Dose: 40 mg Fentanyl (Sublimaze) Confirm Administered Dose 100 mcg .ROUTE .STK-MED ONE Stop: 12/02/18 08:25 Fentanyl (Sublimaze) 50 mcg IVPUSH Q5M PRN PRN Reason: Pain (severe 7-10) Stop: 12/03/18 11:24 Hydralazine HCl (Apresoline) 5 mg IVPUSH ONETIME PRN PRN Reason: Hypertension Hydralazine HCl (Apresoline) 10 mg IVPUSH ONETIME PRN PRN Reason: Hypertension Hydromorphone HCl (Dilaudid) 0.25 mg IVPUSH Q10M PRN PRN Reason: Pain (severe 7-10) Stop: 12/03/18 11:24 Acetaminophen 1,000 mg/ Premix 100 mls @ 400 mls/hr IV ONARRIVE [facility] Last Admin: 12/02/18 08:10 Dose: 400 mls/hr Ropivacaine 49.25 ml/Ketorolac Tromethamine 30 mg/Epinephrine HCl 0.5 mg/ Clonidine HCl 80 mcg/ Sodium Chloride 100 mls @ 50 mls/sec INJECT ASDIRECTED [facility] Tranexamic Acid 2,000 mg/ (Sodium Chloride) 120 mls @ 600 mls/hr IV ASDIRECTED ONE Stop: 12/02/18 08:11 Last Admin: 12/02/18 13:25 Dose: Not Given Ropivacaine 49.25 ml/Ketorolac Tromethamine 30 mg/Epinephrine HCl 0.5 mg/ Sodium Chloride 100 mls @ 3,000 mls/hr INJECT ASDIRECTED [facility] Acetaminophen 1,000 mg/ Premix 100 mls @ 400 mls/hr IV Q6H [facility] Stop: 12/02/18 23:44 Last Admin: 12/02/18 14:50 Dose: Not Given Cefazolin Sodium/Dextrose 2 gm (/ Premix) 50 mls @ 100 mls/hr IV Q8H [facility] Stop: 12/02/18 19:59 Last Admin: 12/02/18 18:33 Dose: 100 mls/hr Acetaminophen 1,000 mg/ Premix 100 mls @ 400 mls/hr IV Q6H [facility] Stop: 12/03/18 01:44 Last Admin: 12/03/18 00:35 Dose: 400 mls/hr Cefazolin Sodium/Dextrose 2 gm (/ Premix) 50 mls @ 100 mls/hr IV ONETIME ONE Stop: 12/03/18 00:26 Last Admin: 12/03/18 01:26 Dose: Not Given Cefazolin Sodium/Dextrose 2 gm (/ Premix) 50 mls @ 100 mls/hr IV ONETIME ONE Stop: 12/03/18 02:59 Last Admin: 12/03/18 01:43 Dose: 100 mls/hr Ketorolac Tromethamine (Toradol) 30 mg IVPUSH ONARRIVE [facility] Last Admin: 12/02/18 08:08 Dose: 30 mg Ketorolac Tromethamine (Toradol) Confirm Administered Dose 30 mg .ROUTE .STK- MED ONE Stop: 12/02/18 08:25 Ketorolac Tromethamine (Toradol) 30 mg IVPUSH Q6H [facility] Stop: 12/03/18 05:00 Last Admin: 12/02/18 14:51 Dose: Not Given Ketorolac Tromethamine (Toradol) 30 mg IVPUSH Q6H [facility] Stop: 12/03/18 05:00 Last Admin: 12/03/18 01:40 Dose: 30 mg Labetalol HCl (Normodyne) 10 mg IVPUSH Q6H PRN PRN Reason: Hypertension Stop: 12/03/18 11:24 Lidocaine (Xylocaine-Mpf 2%) Confirm Administered Dose 5 ml .ROUTE .STK-MED ONE Stop: 12/02/18 08:25 Meperidine HCl (Demerol) 12.5 mg IVPUSH ONETIME PRN PRN Reason: Shivering Meperidine HCl (Demerol) 25 mg IV ONETIME PRN PRN Reason: Shivering Metoclopramide HCl (Reglan) 10 mg IVPUSH ONETIME PRN PRN Reason: Nausea Midazolam HCl (Versed 1 Mg/Ml) Confirm Administered Dose 2 mg .ROUTE .STK-MED ONE Stop: 12/02/18 08:25 Morphine Sulfate (Morphine) 4 mg IVPUSH Q10M PRN PRN Reason: Pain (severe 7-10) Stop: 12/03/18 11:24 Morphine Sulfate (Morphine [employer] 30 Mg In 30 Ml) 30 mg IV ASDIRECTED PRN; Protocol PRN Reason: Pain Stop: 12/03/18 06:00 Last Admin: 12/02/18 21:35 Dose: 30 mg Naloxone HCl (Narcan) 0.1 mg IVPUSH ONETIME PRN PRN Reason: Respiratory Depression Ondansetron HCl (Zofran) Confirm Administered Dose 8 mg .ROUTE .STK-MED ONE Stop: 12/02/18 08:25 Ondansetron HCl (Zofran) 8 mg IVPUSH ONETIME PRN PRN Reason: Nausea Oxycodone HCl (Oxycodone) 5 - 10 mg PO Q4H PRN PRN Reason: Pain Stop: 12/03/18 06:00 Last Admin: 12/02/18 21:30 Dose: 10 mg Promethazine HCl (Phenergan) 12.5 mg IM ONETIME PRN PRN Reason: Nausea Propofol (Diprivan 20 Ml) Confirm Administered Dose 600 mg .ROUTE .STK-MED ONE Stop: 12/02/18 08:26 Scopolamine (Transderm-Scop) 1.5 mg TRDERM Q72H PRN PRN Reason: Nausea Tranexamic Acid (Cyklokapron) Confirm Administered Dose 2,000 mg .ROUTE .STK- MED ONE Stop: 12/02/18 09:18 - Exam Wound/Incisions: Dressing Dry and Intact General: Alert, Oriented Cardiovascular: Regular Rate, Regular Rhythm Physical Findings Comment:: vss, afeb hgb 11.8 uo 1750mL - Problem List Review Problem List Initiated/Reviewed/Updated: Yes - My Orders Last 24 Hours: Active Orders 24 hr Category Date Time Status Blood Glucose Check, Bedside [RC] ACBED Care 12/02/18 11:45 Inactive Communication Order [RC] PRN Care 12/02/18 11:19 Active Communication Order [RC] PRN Care 12/02/18 11:19 Active Insert Urinary Catheter [OM.PC] Q24H Care 12/02/18 08:00 Ordered Insert Urinary Catheter [OM.PC] Q24H Care 12/03/18 08:00 Ordered Neurovascular Check [RC] Q2HR Care 12/02/18 11:19 Active Notify Provider Consults [RC] ASDIRECTED Care 12/02/18 11:19 Active Notify Provider Vital Signs [RC] ASDIRECTED Care 12/02/18 11:19 Active Oxygen Therapy [RC] ASDIRECTED Care 12/02/18 11:24 Active RT Incentive Spirometry [RC] Q1HWA Care 12/02/18 11:19 Active Wound Care [RC] DAILY Care 12/02/18 11:19 Active Consult to Physician [CONS] Routine Cons 12/02/18 11:19 Active PT Evaluation and Treatment [CONS] Routine Cons 12/02/18 11:19 Active [employer] Diet [DIET] Diet 12/02/18 Breakfast Active HEMOGLOBIN/HEMATOCRIT,HH [HEME] DAILY Lab 12/04/18 06:00 Ordered Acetaminophen/oxyCODONE [Percocet 325-5 MG] Med 12/03/18 06:00 Active 1 - 2 tab PO Q4H PRN Albuterol [Proventil Neb Soln] Med 12/02/18 11:24 Active 2.5 mg NEB Q6HRRT PRN Alum Hydrox/Mag Hydrox/Simeth [Mag-Al Plus] Med 12/02/18 11:19 Active 30 ml PO Q4H PRN Aspirin Med 12/03/18 09:00 Active 325 mg PO BID Bisacodyl [Dulcolax] Med 12/02/18 11:19 Active 10 mg RECTAL DAILY PRN Celecoxib [CeleBREX] Med 12/03/18 09:00 Active 200 mg PO BID Cyanocobalamin (Vitamin B12) [Vitamin B12] Med 12/03/18 09:00 Active 800 mcg PO DAILY Docusate Sodium [Colace] Med 12/02/18 11:19 Active 100 mg PO BID PRN Famotidine [Pepcid] Med 12/03/18 09:00 Active 40 mg PO DAILY Ferrous Sulfate Med 12/03/18 09:00 Active 325 mg PO DAILY Morphine Med 12/03/18 06:00 Active 1 - 3 mg IVPUSH Q3H PRN Ondansetron [Zofran] Med 12/02/18 11:19 Active 4 mg IVPUSH Q6H PRN Polyethylene Glycol 3350 [MiraLAX] Med 12/03/18 09:00 Active 17 gm PO DAILY Sodium Chloride 0.9% [Saline Flush] Med 12/02/18 11:19 Active 10 ml FLUSH ASDIRECTED PRN Sodium Chloride 0.9% [Saline Flush] Med 12/02/18 11:19 Active 2.5 ml FLUSH ASDIRECTED PRN diphenhydrAMINE [Benadryl] Med 12/02/18 11:19 Active 25 - 50 mg PO Q6H PRN Convert IV to Saline Lock [OM.PC] PRN Oth 12/03/18 06:00 Ordered Ice Therapy [OM.PC] Routine Oth 12/02/18 11:19 Ordered Sequential Compression Device [OM.PC] Routine Oth 12/02/18 08:00 Ordered Medication Orders Al Hydroxide/Mg Hydroxide (Mag-Al Plus) 30 ml PO Q4H PRN PRN Reason: Indigestion Albuterol (Proventil Neb Soln) 2.5 mg NEB Q6HRRT PRN PRN Reason: Wheezing Aspirin (Aspirin) 325 mg PO BID [facility] Bisacodyl (Dulcolax) 10 mg RECTAL DAILY PRN PRN Reason: Constipation Celecoxib (Celebrex) 200 mg PO BID [facility] Cyanocobalamin (Vitamin B12) 800 mcg PO DAILY [facility] Diphenhydramine HCl (Benadryl) 25 - 50 mg PO Q6H PRN PRN Reason: Itching Docusate Sodium (Colace) 100 mg PO BID PRN PRN Reason: Constipation Famotidine (Pepcid) 40 mg PO DAILY [facility] Ferrous Sulfate (Ferrous Sulfate) 325 mg PO DAILY [facility] Lactated Ringer's (Ringers, Lactated) 1,000 mls @ 100 mls/hr IV ASDIRECTED [facility] Last Admin: 12/02/18 21:29 Dose: 100 mls/hr Infusion: 12/02/18 18:06 Dose: 100 mls/hr Admin: 12/02/18 08:06 Dose: 100 mls/hr Morphine Sulfate (Morphine) 1 - 3 mg IVPUSH Q3H PRN PRN Reason: Pain Ondansetron HCl (Zofran) 4 mg IVPUSH Q6H PRN PRN Reason: Nausea/Vomiting Oxycodone/Acetaminophen (Percocet 325-5 Mg) 1 - 2 tab PO Q4H PRN PRN Reason: Pain Polyethylene Glycol (Miralax) 17 gm PO DAILY [facility] Scopolamine (Transderm-Scop) 1.5 mg TRDERM ONARRIVE [facility] Last Admin: 12/02/18 08:06 Dose: 1.5 mg Sodium Chloride (Saline Flush) 10 ml FLUSH ASDIRECTED PRN PRN Reason: Keep Vein Open Sodium Chloride (Saline Flush) 2.5 ml FLUSH ASDIRECTED PRN PRN Reason: Keep Vein Open - Assessment Assessment (Free Text/Narrative):: POD#1 L TKA acute posthemorrhagic anemia - Plan Plan (Free Text/Narrative):: DC IV fluids - saline lock IV DC cooper DC [employer] - morphine IV prn breakthrough pain DC oxycodone - percocet 5/325 prn available ASA 325mg PO BID as DVT prophylaxis dressing change to aquacel this afternoon PT today pt has wheeled walker or script has been written anticipate up to 72 hour stay for IV pain medication and continued physical therapy pt will require FWW for safe mobility/stability until increased strength/gait independence s/p TKA - has been safely mobilizing in room with FWW. d/ch medications written appreciate hospitalist consult
[2018-12-03] MEDS: Acetaminophen/oxyCODONE 325-5 MG Tab PO PRN ×2 (08:57→13:56)
[2018-12-03] MEDS ORDERED: Aspirin 325 MG Tab.EC PO SCH (09:00)
[2018-12-03] MEDS ORDERED: Polyethylene Glycol 3350 Powder 17 GM Packet PO SCH (09:00)
[2018-12-03] MEDS ORDERED: Famotidine 20 MG Tab PO SCH (09:00)
[2018-12-03] MEDS ORDERED: Cyanocobalamin (Vitamin B12) 500 MCG Tab PO SCH (09:00)
[2018-12-03] MEDS ORDERED: Celecoxib 100 MG Cap PO SCH (09:00)
[2018-12-03] MEDS ORDERED: Ferrous Sulfate 325 MG Tab PO SCH (09:00)
[2018-12-03 12:00] VITALS: BP 119/53
--- NOTE | 2018-12-03 12:03 | PCM.CONSN ---
- General Info Date of Service: 12/03/18 Admission Dx/Problem (Free Text): Admission Diagnosis/Problem Admission Diagnosis/Problem Left TKA Subjective Update: Doing well today. No concerns. Pain is well controlled. Hoping to go home today. Functional Status: Reports: Pain Controlled, Tolerating Diet, Ambulating - Review of Systems General: Reports: No Symptoms. Denies: Fever, Weakness, Fatigue HEENT: Reports: No Symptoms. Denies: Headaches, Sore Throat, Visual Changes Pulmonary: Reports: No Symptoms. Denies: Shortness of Breath Cardiovascular: Reports: No Symptoms. Denies: Chest Pain Gastrointestinal: Reports: No Symptoms. Denies: Abdominal Pain, Nausea, Vomiting Genitourinary: Reports: No Symptoms. Denies: Dysuria, Frequency, Burning Musculoskeletal: Reports: No Symptoms Skin: Reports: No Symptoms Neurological: Reports: No Symptoms Psychiatric: Reports: No Symptoms - Patient Data Vitals - Most Recent: Last Vital Signs Temp 98.2 F 12/03/18 08:00 Pulse 63 12/03/18 08:00 Resp 14 12/03/18 08:00 BP 110/62 12/03/18 08:00 Pulse Ox 95 12/03/18 08:00 Weight - Most Recent: 96.615 kg I&O - Last 24 Hours: Intake & Output 12/02/18 12/03/18 12/03/18 22:59 06:59 14:59 Intake Total 270 500 Output Total 730 1000 Balance -460 -500 Lab Results Last 24 Hours: Laboratory Results - last 24 hr 12/02/18 12/02/18 12/03/18 Range/Units 08:10 18:00 05:10 WBC 13.09 H (4.0-11.0) K/uL RBC 4.46 (4.30-5.90) M/uL Hgb 11.8 L (12.0-16.0) g/dL Hct 36.3 (36.0-46.0) % MCV 81.4 (80.0-98.0) fL MCH 26.5 L (27.0-32.0) pg MCHC 32.5 (31.0-37.0) g/dL RDW Std Deviation 42.1 (28.0-62.0) fl RDW Coeff of Milly 14 (11.0-15.0) % Plt Count 210 (150-400) K/uL MPV 9.60 (7.40-12.00) fL Neut % (Auto) 84.4 H (48.0-80.0) % Lymph % (Auto) 8.2 L (16.0-40.0) % [place] % (Auto) 7.3 (0.0-15.0) % Eos % (Auto) 0.0 (0.0-7.0) % Baso % (Auto) 0.1 (0.0-1.5) % Neut # (Auto) 11.1 H (1.4-5.7) K/uL Lymph # (Auto) 1.1 (0.6-2.4) K/uL [place] # (Auto) 1.0 H (0.0-0.8) K/uL Eos # (Auto) 0.0 (0.0-0.7) K/uL Baso # (Auto) 0.0 (0.0-0.1) K/uL Nucleated RBC % 0.0 /100WBC Nucleated RBCs # 0 K/uL Sodium (136-145) mmol/L Potassium (3.5-5.1) mmol/L Chloride (98-107) mmol/L Carbon Dioxide (21.0-32.0) mmol/L BUN (7.0-18.0) mg/dL Creatinine (0.6-1.0) mg/dL Est Cr Clr Drug Dosing mL/min Estimated GFR (MDRD) ml/min Glucose (74-106) mg/dL POC Glucose 178 H (60-110) mg/dL Hemoglobin A1c 6.1 (4.5-6.2) % Calcium (8.5-10.1) mg/dL Total Bilirubin (0.2-1.0) mg/dL AST (15-37) IU/L ALT (14-63) IU/L Alkaline Phosphatase (46-116) U/L Total Protein (6.4-8.2) g/dL Albumin (3.4-5.0) g/dL Globulin (2.6-4.0) g/dL Albumin/Globulin Ratio (0.9-1.6) 12/03/18 Range/Units 05:10 WBC (4.0-11.0) K/uL RBC (4.30-5.90) M/uL Hgb (12.0-16.0) g/dL Hct (36.0-46.0) % MCV (80.0-98.0) fL MCH (27.0-32.0) pg MCHC (31.0-37.0) g/dL RDW Std Deviation (28.0-62.0) fl RDW Coeff of Milly (11.0-15.0) % Plt Count (150-400) K/uL MPV (7.40-12.00) fL Neut % (Auto) (48.0-80.0) % Lymph % (Auto) (16.0-40.0) % [place] % (Auto) (0.0-15.0) % Eos % (Auto) (0.0-7.0) % Baso % (Auto) (0.0-1.5) % Neut # (Auto) (1.4-5.7) K/uL Lymph # (Auto) (0.6-2.4) K/uL [place] # (Auto) (0.0-0.8) K/uL Eos # (Auto) (0.0-0.7) K/uL Baso # (Auto) (0.0-0.1) K/uL Nucleated RBC % /100WBC Nucleated RBCs # K/uL Sodium 135 L (136-145) mmol/L Potassium 4.2 (3.5-5.1) mmol/L Chloride 101 (98-107) mmol/L Carbon Dioxide 25.4 (21.0-32.0) mmol/L BUN 14 (7.0-18.0) mg/dL Creatinine 0.9 (0.6-1.0) mg/dL Est Cr Clr Drug Dosing 60.99 mL/min Estimated GFR (MDRD) > 60.0 ml/min Glucose 147 H (74-106) mg/dL POC Glucose (60-110) mg/dL Hemoglobin A1c (4.5-6.2) % Calcium 8.8 (8.5-10.1) mg/dL Total Bilirubin 0.2 (0.2-1.0) mg/dL AST 19 (15-37) IU/L ALT 14 (14-63) IU/L Alkaline Phosphatase 84 (46-116) U/L Total Protein 5.7 L (6.4-8.2) g/dL Albumin 2.7 L (3.4-5.0) g/dL Globulin 3.0 (2.6-4.0) g/dL Albumin/Globulin Ratio 0.9 (0.9-1.6) Med Orders - Current: Current Medications Al Hydroxide/Mg Hydroxide (Mag-Al Plus) 30 ml PO Q4H PRN PRN Reason: Indigestion Albuterol (Proventil Neb Soln) 2.5 mg NEB Q6HRRT PRN PRN Reason: Wheezing Aspirin (Ecotrin) 325 mg PO BID [facility] Last Admin: 12/03/18 08:56 Dose: 325 mg Bisacodyl (Dulcolax) 10 mg RECTAL DAILY PRN PRN Reason: Constipation Celecoxib (Celebrex) 200 mg PO BID [facility] Last Admin: 12/03/18 09:03 Dose: 200 mg Cyanocobalamin (Vitamin B12) 1,000 mcg PO DAILY [facility] Last Admin: 12/03/18 08:55 Dose: 1,000 mcg Diphenhydramine HCl (Benadryl) 25 - 50 mg PO Q6H PRN PRN Reason: Itching Docusate Sodium (Colace) 100 mg PO BID PRN PRN Reason: Constipation Last Admin: 12/03/18 08:56 Dose: 100 mg Famotidine (Pepcid) 40 mg PO DAILY [facility] Last Admin: 12/03/18 08:56 Dose: 40 mg Ferrous Sulfate (Ferrous Sulfate) 325 mg PO DAILY [facility] Last Admin: 12/03/18 08:59 Dose: 325 mg Lactated Ringer's (Ringers, Lactated) 1,000 mls @ 100 mls/hr IV ASDIRECTED [facility] Last Admin: 12/02/18 21:29 Dose: 100 mls/hr Morphine Sulfate (Morphine) 1 - 3 mg IVPUSH Q3H PRN PRN Reason: Pain Last Admin: 12/03/18 10:35 Dose: 2 mg Ondansetron HCl (Zofran) 4 mg IVPUSH Q6H PRN PRN Reason: Nausea/Vomiting Last Admin: 12/03/18 09:16 Dose: 4 mg Oxycodone/Acetaminophen (Percocet 325-5 Mg) 1 - 2 tab PO Q4H PRN PRN Reason: Pain Last Admin: 12/03/18 08:57 Dose: 2 tab Polyethylene Glycol (Miralax) 17 gm PO DAILY [facility] Last Admin: 12/03/18 09:03 Dose: 17 gm Scopolamine (Transderm-Scop) 1.5 mg TRDERM ONARRIVE [facility] Last Admin: 12/02/18 08:06 Dose: 1.5 mg Sodium Chloride (Saline Flush) 10 ml FLUSH ASDIRECTED PRN PRN Reason: Keep Vein Open Sodium Chloride (Saline Flush) 2.5 ml FLUSH ASDIRECTED PRN PRN Reason: Keep Vein Open Discontinued Medications Hydrocodone Bitart/Acetaminophen ([place] 325-5 Mg) 2 tab PO Q6H PRN PRN Reason: Pain (moderate 4-6) Atropine Sulfate (Atropine 0.1 Mg/Ml) 0.4 mg IVPUSH Q5M PRN PRN Reason: Bradycardia Dexamethasone (Dexamethasone) Confirm Administered Dose 20 mg .ROUTE .STK-MED ONE Stop: 12/02/18 08:25 Famotidine (Pepcid) 40 mg IVPUSH ONARRIVE [facility] Last Admin: 12/02/18 08:07 Dose: 40 mg Fentanyl (Sublimaze) Confirm Administered Dose 100 mcg .ROUTE .STK-MED ONE Stop: 12/02/18 08:25 Fentanyl (Sublimaze) 50 mcg IVPUSH Q5M PRN PRN Reason: Pain (severe 7-10) Stop: 12/03/18 11:24 Hydralazine HCl (Apresoline) 5 mg IVPUSH ONETIME PRN PRN Reason: Hypertension Hydralazine HCl (Apresoline) 10 mg IVPUSH ONETIME PRN PRN Reason: Hypertension Hydromorphone HCl (Dilaudid) 0.25 mg IVPUSH Q10M PRN PRN Reason: Pain (severe 7-10) Stop: 12/03/18 11:24 Acetaminophen 1,000 mg/ Premix 100 mls @ 400 mls/hr IV ONARRIVE [facility] Last Admin: 12/02/18 08:10 Dose: 400 mls/hr Ropivacaine 49.25 ml/Ketorolac Tromethamine 30 mg/Epinephrine HCl 0.5 mg/ Clonidine HCl 80 mcg/ Sodium Chloride 100 mls @ 50 mls/sec INJECT ASDIRECTED [facility] Tranexamic Acid 2,000 mg/ (Sodium Chloride) 120 mls @ 600 mls/hr IV ASDIRECTED ONE Stop: 12/02/18 08:11 Last Admin: 12/02/18 13:25 Dose: Not Given Ropivacaine 49.25 ml/Ketorolac Tromethamine 30 mg/Epinephrine HCl 0.5 mg/ Sodium Chloride 100 mls @ 3,000 mls/hr INJECT ASDIRECTED [facility] Acetaminophen 1,000 mg/ Premix 100 mls @ 400 mls/hr IV Q6H [facility] Stop: 12/02/18 23:44 Last Admin: 12/02/18 14:50 Dose: Not Given Cefazolin Sodium/Dextrose 2 gm (/ Premix) 50 mls @ 100 mls/hr IV Q8H [facility] Stop: 12/02/18 19:59 Last Admin: 12/02/18 18:33 Dose: 100 mls/hr Acetaminophen 1,000 mg/ Premix 100 mls @ 400 mls/hr IV Q6H [facility] Stop: 12/03/18 01:44 Last Admin: 12/03/18 00:35 Dose: 400 mls/hr Cefazolin Sodium/Dextrose 2 gm (/ Premix) 50 mls @ 100 mls/hr IV ONETIME ONE Stop: 12/03/18 00:26 Last Admin: 12/03/18 01:26 Dose: Not Given Cefazolin Sodium/Dextrose 2 gm (/ Premix) 50 mls @ 100 mls/hr IV ONETIME ONE Stop: 12/03/18 02:59 Last Admin: 12/03/18 01:43 Dose: 100 mls/hr Ketorolac Tromethamine (Toradol) 30 mg IVPUSH ONARRIVE [facility] Last Admin: 12/02/18 08:08 Dose: 30 mg Ketorolac Tromethamine (Toradol) Confirm Administered Dose 30 mg .ROUTE .STK- MED ONE Stop: 12/02/18 08:25 Ketorolac Tromethamine (Toradol) 30 mg IVPUSH Q6H [facility] Stop: 12/03/18 05:00 Last Admin: 12/02/18 14:51 Dose: Not Given Ketorolac Tromethamine (Toradol) 30 mg IVPUSH Q6H [facility] Stop: 12/03/18 05:00 Last Admin: 12/03/18 01:40 Dose: 30 mg Labetalol HCl (Normodyne) 10 mg IVPUSH Q6H PRN PRN Reason: Hypertension Stop: 12/03/18 11:24 Lidocaine (Xylocaine-Mpf 2%) Confirm Administered Dose 5 ml .ROUTE .STK-MED ONE Stop: 12/02/18 08:25 Meperidine HCl (Demerol) 12.5 mg IVPUSH ONETIME PRN PRN Reason: Shivering Meperidine HCl (Demerol) 25 mg IV ONETIME PRN PRN Reason: Shivering Metoclopramide HCl (Reglan) 10 mg IVPUSH ONETIME PRN PRN Reason: Nausea Midazolam HCl (Versed 1 Mg/Ml) Confirm Administered Dose 2 mg .ROUTE .STK-MED ONE Stop: 12/02/18 08:25 Morphine Sulfate (Morphine) 4 mg IVPUSH Q10M PRN PRN Reason: Pain (severe 7-10) Stop: 12/03/18 11:24 Morphine Sulfate (Morphine Equipment Technician 30 Mg In 30 Ml) 30 mg IV ASDIRECTED PRN; Protocol PRN Reason: Pain Stop: 12/03/18 06:00 Last Admin: 12/02/18 21:35 Dose: 30 mg Naloxone HCl (Narcan) 0.1 mg IVPUSH ONETIME PRN PRN Reason: Respiratory Depression Ondansetron HCl (Zofran) Confirm Administered Dose 8 mg .ROUTE .STK-MED ONE Stop: 12/02/18 08:25 Ondansetron HCl (Zofran) 8 mg IVPUSH ONETIME PRN PRN Reason: Nausea Oxycodone HCl (Oxycodone) 5 - 10 mg PO Q4H PRN PRN Reason: Pain Stop: 12/03/18 06:00 Last Admin: 12/02/18 21:30 Dose: 10 mg Promethazine HCl (Phenergan) 12.5 mg IM ONETIME PRN PRN Reason: Nausea Propofol (Diprivan 20 Ml) Confirm Administered Dose 600 mg .ROUTE .STK-MED ONE Stop: 12/02/18 08:26 Scopolamine (Transderm-Scop) 1.5 mg TRDERM Q72H PRN PRN Reason: Nausea Tranexamic Acid (Cyklokapron) Confirm Administered Dose 2,000 mg .ROUTE .STK- MED ONE Stop: 12/02/18 09:18 - Exam General: Alert, Oriented, Cooperative, No Acute Distress Lungs: Clear to Auscultation, Normal Respiratory Effort Cardiovascular: Regular Rate, Regular Rhythm GI/Abdominal Exam: Normal Bowel Sounds, Soft, Non-Tender Extremities: Normal Inspection, Normal Range of Motion, Non-Tender Wound/Incisions: Dressing Dry and Intact Neurological: No New Focal Deficit Psy/Mental Status: Alert, Normal Affect, Normal Mood Consult PN Assessment/Plan Procedures: Procedures ASSAY OF FOLIC ACID SERUM (07/25/18) ASSAY OF IRON (01/07/18) ASSAY OF MAGNESIUM (01/07/18) ASSAY OF METANEPHRINES (02/16/17) ASSAY THREE CATECHOLAMINES (02/16/17) ASSAY THYROID STIM HORMONE (01/26/17) CHEST X-RAY 2VW FRONTAL&LATL (11/29/15) COMPLETE CBC AUTOMATED (01/26/17) COMPLETE CBC W/AUTO DIFF WBC (11/12/18) COMPREHEN METABOLIC PANEL (11/12/18) CT ABD & PELV W/CONTRAST (12/15/15) CT ABD & PELVIS W/O CONTRAST (02/08/17) CT THORAX W/DYE (12/15/15) ELECTROCARDIOGRAM TRACING (11/12/18) EMERGENCY DEPT VISIT (11/29/15) EXTREMITY STUDY (10/04/18) GLYCOSYLATED HEMOGLOBIN TEST (11/12/18) IRON BINDING TEST (07/25/18) LIPID PANEL (01/26/17) METABOLIC PANEL TOTAL CA (01/07/18) MRI JNT OF LWR EXTRE W/O DYE (11/05/18) PROTHROMBIN TIME (11/12/18) PT EVAL LOW COMPLEX 20 MIN (09/05/18) ROUTINE VENIPUNCTURE (11/12/18) TB TEST CELL IMMUN MEASURE (11/29/15) THERAPEUTIC EXERCISES (10/24/18) UR ALBUMIN SEMIQUANTITATIVE (07/25/18) URINALYSIS AUTO W/O SCOPE (07/25/18) URINALYSIS AUTO W/SCOPE (11/12/18) VASOPNEUMATIC DEVICE THERAPY (10/24/18) VIT D 1 25-DIHYDROXY (07/25/18) VITAMIN B-12 (07/25/18) X-RAY EXAM CHEST 2 VIEWS (11/12/18) X-RAY EXAM OF ANKLE (10/30/18) X-RAY EXAM OF KNEE 1 OR 2 (04/30/18) X-RAY EXAM OF KNEE 3 (08/23/18) (1) S/P total knee arthroplasty SNOMED Code(s): 5724843289056, 141887308, 4576459205401 Code(s): Z96.659 - PRESENCE OF UNSPECIFIED ARTIFICIAL KNEE JOINT Current Visit: No Qualifiers: Laterality: left Qualified Code(s): Z96.652 - Presence of left artificial knee joint (2) H/O gastric bypass SNOMED Code(s): 521022887 Code(s): Z98.84 - BARIATRIC SURGERY STATUS Current Visit: No (3) Hx of type 2 diabetes mellitus SNOMED Code(s): 051143835 Code(s): Z86.39 - PERSONAL HISTORY OF ENDO, NUTRITIONAL AND METABOLIC DISEASE Current Visit: No (4) Hx of upper gastrointestinal hemorrhage SNOMED Code(s): 720607859 Code(s): Z87.19 - PERSONAL HISTORY OF OTHER DISEASES OF THE DIGESTIVE SYSTEM Current Visit: No Problem List Initiated/Reviewed/Updated: Yes Plan: This 53 year old year old female admitted for L TKA with Orthopedics, Hospitalists consulted for medical management. 1. S/P L TKA: Doing well, orders per Orthopedics 2. Hx of Dm Type 2: Requested BS not to be checked, A1c 6.1. Monitor. No Novolog SSI or monitoring BS 3. Hx HTN: Stable. Monitoring. VTE prophylaxis: Recommend when deemed appropriate by Orthopedics, currently on ASA BID
--- NOTE | 2018-12-03 16:20 | PCM.SN ---
- Free Text/Narrative Note: dressing changed to aquacel dressing during noon rounds she feels pain is well controlled would like to go home this afternoon d/ch summary #[id number]
--- NOTE | 2018-12-04 07:06 | PCM48HPAN ---
Post Anesthesia Note - EVALUATION WITHIN 48HRS OF ANESTHETIC Vital Signs in Normal Range: Yes Patient Participated in Evaluation: Yes Respiratory Function Stable: Yes Airway Patent: Yes Cardiovascular Function Stable: Yes Hydration Status Stable: Yes Pain Control Satisfactory: Yes Nausea and Vomiting Control Satisfactory: Yes Resp Rate: 16
--- NOTE | 2018-12-04 11:31 | DISCH ---
DATE OF DISCHARGE: 12/03/2018 PRIMARY CARE PHYSICIAN: YOU WASHBURN MD ADMITTING DIAGNOSIS: Degenerative joint disease, left knee, tricompartmental. OTHER MEDICAL DIAGNOSES: 1. Left adrenal adenoma. 2. Anemia. 3. Folate deficiency. 4. Gastritis. 5. Iron deficiency. 6. Obesity. 7. Obstructive sleep apnea. 8. Type 2 diabetes. DISCHARGE DIAGNOSES: 1. Degenerative joint disease, left knee, tricompartmental. 2. Left adrenal adenoma. 3. Anemia. 4. Folate deficiency. 5. Gastritis. 6. Iron deficiency. 7. Obesity. 8. Obstructive sleep apnea. 9. Type 2 diabetes. 10.Acute post hemorrhagic anemia. BRIEF HISTORY: Jackie is a 53-year-old female, who has had progressive complaints of left knee pain. She has tried and failed conservative treatment. She has previously undergone a right total knee arthroplasty in August of 2018 and is doing well with that. At that time, surgical treatment was recommended for the left knee. On December 02, 2018, the patient underwent a left total knee arthroplasty using patient-specific instrumentation done by Dr. Yaneth Wall. It was done under spinal anesthesia with sedation. Estimated blood loss was 50 mL. Tourniquet time was 41 minutes. There were no complications. Upon completion of the procedure, the patient was transferred to the PACU and subsequently to Med/Surg for postoperative care. HOSPITAL COURSE: Postoperatively, the patient did well. She received 2 doses of antibiotics postoperatively for total 24 hours of antibiotic coverage. The hospitalist service and physical therapy followed her through her hospital stay. Her pain was controlled with a combination of oral and IV pain medications. Her vital signs were stable. She was afebrile. Her hemoglobin on the morning of December 03 was 11.8. She is ambulating well with a wheeled walker. Her pain is currently controlled with oral pain medications only. She is tolerating oral intake well. She feels comfortable with discharge to home. DISCHARGE MEDICATIONS: 1. Percocet 5/325. 2. Celebrex 200 mg. 3. Colace 100 mg. 4. MiraLax. 5. Aspirin 325 mg. For complete discharge instructions, please refer back to Dr. Wall's total knee arthroplasty patient instructions. Should she have questions or concerns prior to followup, she has been advised to contact the clinic. SHERYL / NATASHA /[id number]
== END 2018-12-03 14:55 | disposition home or self-care (01) | DRG 302 ==
LOC: MW.SDS 07:33 → MW.MS 13:00
PROVIDERS: ADMIT Orthopaedic Surgery; ATTEND Orthopaedic Surgery
PROC: 0SRD0J9 Replacement of Left Knee Joint with Synthetic Substitute, Cemented, Open Approach (ICD-10-PCS; principal; 2018-12-02)
DX: M17.12 Unilateral primary osteoarthritis, left knee (principal); D62 Acute posthemorrhagic anemia; E53.8 Deficiency of other specified B group vitamins; K29.70 Gastritis, unspecified, without bleeding; E61.1 Iron deficiency; E66.9 Obesity, unspecified; G47.33 Obstructive sleep apnea (adult) (pediatric); E11.9 Type 2 diabetes mellitus without complications; D35.02 Benign neoplasm of left adrenal gland; F32.9 Major depressive disorder, single episode, unspecified; F17.210 Nicotine dependence, cigarettes, uncomplicated; M94.262 Chondromalacia, left knee; M25.762 Osteophyte, left knee; M25.862 Other specified joint disorders, left knee; Z68.36 Body mass index [BMI] 36.0-36.9, adult; Z96.651 Presence of right artificial knee joint; Z79.899 Other long term (current) drug therapy; Z79.82 Long term (current) use of aspirin; Z98.84 Bariatric surgery status; Z90.710 Acquired absence of both cervix and uterus
CPT/HCPCS: 36415; 73560-26-LT; 73560-LT; 80053; 82962; 83036; 85025; 86850; 86900; 86901; 97110-GP; 97161-GP; A9270-GY; C1713; C1776; J0131; J0171; J0690; J1100; J1885; J2001; J2250; J2270; J2274; J2405; J2704; J2795; J3010; J3490; J7050; J7120

== ENCOUNTER 2021-03-28 14:31 | Inpatient (IN) | payer BC ==
[2021-03-28] MEDS ORDERED: Heparin Sodium 5,000 Units/ML Vial IVPUSH ONE (15:34)
[2021-03-28] MEDS: Heparin Sodium/0.45% NaCl 500 ML IV SCH (16:27)
[2021-03-28] MEDS ORDERED: Ondansetron 4 MG Tab.DIS PO PRN (17:16)
[2021-03-28] MEDS ORDERED: Acetaminophen 325 MG Tab PO PRN (17:16)
--- NOTE | 2021-03-28 17:25 | PCM.HP.2 ---
H&P History of Present Illness - General Date of Service: 03/28/21 Admit Problem/Dx: Admission Diagnosis/Problem Admission Diagnosis/Problem saddle pulmonary embolism and DVT Source of Information: Patient, Provider History Limitations: Reports: No Limitations - History of Present Illness Initial Comments - Free Text/Narative: Patient is a 55-year-old female with a past medical history of diabetes mellitus, obesity and tobacco abuse disorder and has been smoking for 40+ years 1 pack/day. Was brought into the ED after discovering that she has a saddle pulmonary embolism and DVT found on venous Doppler and angiogram. Patient states approximately a week ago she had gone on a camping trip requiring that required a long distance drive approximately 8 hours. Since then had started developing swelling in her left lower extremity, over the course of the week she felt as though her leg continued to feel as though it was tightening. Today she suddenly developed shortness of breath, and saw herself to [facility] clinic to have appropriate work-up. Her lab work was suspected to have a PE which led to further work-up to confirm suspicions. Patient denied any previous similar incidents or episodes, denies any chest pain, palpitations, dizziness, numbness, tingling, fever, chills. Patient does endorse dyspnea/shortness of breath and some associated calf swelling and pain. Pain was noted to be 9 out of 10, aggravated by squeezing calf or applying weight on them such as during walking and slightly relieved by rest. Upon presentation left calf appeared to be la rger than right, with mild erythema and positive Homans' sign. ER course: Patient was started on bolus of IV heparin, started on heparin drip. Otherwise patient appeared to be vitally stable with mild elevation in blood pressure noted to be 165/64. Onset of Symptoms: Reports: Gradual left leg Pain Score (Numeric/FACES): 9 - Related Data Allergies/Adverse Reactions: Allergies Allergy/AdvReac Type Severity Reaction Status Date / Time No Known Allergies Allergy Verified 03/28/21 14:50 Home Medications: Home Meds . 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: Musculoskeletal History: Reports: Osteoarthritis Other Musculoskeletal History: hx of fx left wrist Neurological History: Reports: Concussion, Other (See Below) Other Neuro History: hx of motion sickness Psychiatric History: Reports: Depression Endocrine/Metabolic History: Reports: Obesity/BMI 30+ Other Endocrine/Metabolic History: denies diabetes Hematologic History: Reports: Anemia, B12 Deficiency Other Hematologic History: B12 deficiency in the past, currently iron deficient, just started iron supplement Immunologic History: Reports: None Oncologic (Cancer) History: Reports: None Dermatologic History: Reports: None - Infectious Disease History Infectious Disease History: Reports: Chicken Pox - Past Surgical History Head Surgeries/Procedures: Reports: None HEENT Surgical History: Reports: Tonsillectomy Cardiovascular Surgical History: Reports: None Respiratory Surgical History: Reports: None GI Surgical History: Reports: Bariatric Procedure Other GI Surgeries/Procedures: gastric bypass Female Surgical History: Reports: Section, Hysterectomy, Tubal Ligation Endocrine Surgical History: Reports: None Neurological Surgical History: Reports: None Musculoskeletal Surgical History: Reports: Knee Replacement, Other (See Below) Other Musculoskeletal Surgeries/Procedures:: Right RTCR Oncologic Surgical History: Reports: None Social & Family History - Family History Family Medical History: No Pertinent Family History - Tobacco Use Packs/Tins Daily: 1 - Caffeine Use Caffeine Use: Reports: None - Recreational Drug Use Recreational Drug Use: No H&P Review of Systems - Review of Systems: Review Of Systems: See Below General: Reports: No Symptoms HEENT: Reports: No Symptoms Pulmonary: Reports: Shortness of Breath. Denies: Wheezing, Pleuritic Chest Pain, Cough, Sputum, Hemoptysis Cardiovascular: Reports: Dyspnea on Exertion. Denies: Chest Pain, Palpitations, Orthopnea, Lightheadedness, Blood Pressure Problem Gastrointestinal: Reports: No Symptoms Genitourinary: Reports: No Symptoms Musculoskeletal: Reports: Leg Pain Skin: Reports: Erythema Psychiatric: Reports: No Symptoms Neurological: Reports: No Symptoms Hematologic/Lymphatic: Reports: No Symptoms Immunologic: Reports: No Symptoms Exam - Exam Exam: See Below - Vital Signs Vital Signs: Last Vital Signs Temp 97.8 F 03/28/21 14:45 Pulse 79 03/28/21 14:45 Resp 20 03/28/21 14:45 BP 165/64 H 03/28/21 14:45 Pulse Ox 94 L 03/28/21 14:45 Weight: 254 lb - Exam General: Alert, Oriented, Cooperative HEENT: Conjunctiva Clear, EACs Clear, EOMI, PERRLA Neck: Supple, Trachea Midline Lungs: Normal Respiratory Effort, Decreased Breath Sounds, Wheezing Cardiovascular: Regular Rate, Regular Rhythm, Normal S1, Normal S2. No: Irregular Rhythm, Bradycardia, Tachycardia GI/Abdominal Exam: Normal Bowel Sounds, Soft, Non-Tender, No Mass. No: Distended, Guarding, Rigid, Rebound, Tender Back Exam: Normal Inspection, Full Range of Motion. No: CVA Tenderness (L), CVA Tenderness (R) Extremities: Normal Capillary Refill, Pedal Edema, Joint Swelling, Lowell's Sign, Leg Pain, Increased Warmth, Redness Peripheral Pulses: 2+: Carotid (L), Carotid (R), Dorsalis Pedis (L), Dorsalis Pedis (R) Skin: Warm, Dry, Intact Neurological: Cranial Nerves Intact, Reflexes Equal Bilateral Neuro Extensive - Mental Status: Alert, Oriented x3, Normal Mood/Affect, Normal Cognition, Memory Intact Neuro Extensive - Motor, Sensory, Reflexes: CN II-XII Intact, Normal Reflexes DTR: 2+: Bicep (L), Bicep (R), Patella (L), Patella (R) Psychiatric: Alert, Normal Affect, Normal Mood - Patient Data Lab Results Last 24 hrs: Laboratory Results - last 24 hr 03/28/21 03/28/21 Range/Units 14:55 14:55 INR 0.95 APTT 24.3 (18.6-31.3) SEC Sepsis Event Note - Evaluation Sepsis Screening Result: No Definite Risk - Focused Exam Vital Signs: Vital Signs Temp Pulse Resp BP Pulse Ox 03/28/21 14:45 97.8 F 79 20 165/64 H 94 L - Problem List (1) Pulmonary embolism SNOMED Code(s): 64766343 ICD Code: I26.99 - OTHER PULMONARY EMBOLISM WITHOUT ACUTE COR PULMONALE Status: Acute Current Visit: Yes (2) DVT (deep venous thrombosis) SNOMED Code(s): 770578108 ICD Code: I82.409 - ACUTE EMBOLISM AND THOMBOS UNSP DEEP VN UNSP LOWER EXTREMITY Status: Acute Current Visit: Yes (3) Tobacco abuse SNOMED Code(s): 079866773 ICD Code: Z72.0 - TOBACCO USE Status: Acute Current Visit: No Problem List Initiated/Reviewed/Updated: Yes Orders Last 24hrs: Active Orders 24 hr Category Date Time Status Patient Status [ADT] Routine ADT 03/28/21 17:16 Ordered Blood Glucose Check, Bedside [RC] TIDMEALS Care 03/28/21 17:16 Ordered Cardiac Monitoring [RC] CONTINUOUS Care 03/28/21 17:19 Ordered EKG 12 Lead [EKG Documentation Completion] [RC] STAT Care 03/28/21 16:33 Active Oxygen Therapy [RC] PRN Care 03/28/21 17:16 Ordered Pulse Oximetry [RC] CONTINUOUS Care 03/28/21 17:19 Ordered Up ad Mercedes [RC] ASDIRECTED Care 03/28/21 17:16 Ordered VTE/DVT Education [RC] PER UNIT ROUTINE Care 03/28/21 17:16 Ordered Vital Signs [RC] Q4H Care 03/28/21 17:16 Ordered [employer] Diet [DIET] Diet 03/28/21 Dinner Ordered CBC WITH AUTO DIFF [HEME] AM Lab 03/29/21 05:11 Ordered CBC WITH AUTO DIFF [HEME] AM Lab 03/30/21 05:11 Ordered CBC WITH AUTO DIFF [HEME] AM Lab 03/31/21 05:11 Ordered CMP [COMPREHENSIVE METABOLIC PN,CMP] [CHEM] Stat Lab 03/28/21 17:24 Ordered COMPREHENSIVE METABOLIC PN,CMP [CHEM] AM Lab 03/29/21 05:11 Ordered COMPREHENSIVE METABOLIC PN,CMP [CHEM] AM Lab 03/30/21 05:11 Ordered COMPREHENSIVE METABOLIC PN,CMP [CHEM] AM Lab 03/31/21 05:11 Ordered PTT,PARTIAL THROMBOPLSTIN TIME [COAG] Q6H Lab 03/28/21 15:45 Ordered PTT,PARTIAL THROMBOPLSTIN TIME [COAG] Q6H Lab 03/28/21 21:45 Ordered PTT,PARTIAL THROMBOPLSTIN TIME [COAG] Q6H Lab 03/29/21 03:45 Ordered PTT,PARTIAL THROMBOPLSTIN TIME [COAG] Q6H Lab 03/29/21 09:45 Ordered PTT,PARTIAL THROMBOPLSTIN TIME [COAG] Q6H Lab 03/29/21 15:45 Ordered PTT,PARTIAL THROMBOPLSTIN TIME [COAG] Q6H Lab 03/29/21 21:45 Ordered PTT,PARTIAL THROMBOPLSTIN TIME [COAG] Q6H Lab 03/30/21 03:45 Ordered Acetaminophen [TylenoL] Med 03/28/21 17:16 Ordered 650 mg PO Q4H PRN Heparin Sodium/0.45% NaCl [Heparin 25,000 Units in 1/2 Med 03/28/21 15:45 Active NS 500 ML] 500 ml IV TITRATE Lactated Ringers @ 125 MLS/HR(1000ml) Med 03/28/21 17:30 Ordered Lactated Ringers [Ringers, Lactated] 1,000 ml IV ASDIRECTED Ondansetron [Zofran ODT] Med 03/28/21 17:16 Ordered 4 mg PO Q4H PRN Resuscitation Status Routine Resus Stat 03/28/21 17:16 Ordered Medication Orders Acetaminophen (Acetaminophen 325 Mg Tab) 650 mg PO Q4H PRN PRN Reason: Pain (Mild 1-3)/fever Heparin Sodium/Sodium Chloride (Heparin 25,000 Units In 1/2 Ns 500 Ml) 500 mls @ 41.476 mls/hr IV TITRATE VANESSA; Protocol Last Admin: 03/28/21 16:27 Dose: 18 units/kg/hr, 41.476 mls/hr Documented by: PAULETTE Cosigned by: PHILLIP Lactated Ringer's (Ringers, Lactated) 1,000 mls @ 125 mls/hr IV ASDIRECTED VANESSA Ondansetron HCl (Ondansetron 4 Mg Tab.Dis) 4 mg PO Q4H PRN PRN Reason: nausea, able to take PO Assessment/Plan Comment:: 55-year-old female admitted for saddle pulmonary embolism and DVT in her left lower extremity. 1. Pulmonary embolism: Vitally stable, patient not in any acute distress satting 94% on room air without any hypotension or tachycardia. Only complains of slight shortness of breath and calf pain. Angiogram: Saddle emboli right and left main pulmonary emboli extending into branch vessels to all lobes. Venous Doppler study: Left lower extremity DVT, with positive Homans' sign on physical examination, erythema, edema, Started treatment on empiric anticoagulation with bolus of heparin, and heparin drip, with appropriate PTT monitoring. Consulted pulmonary critical care Dr. Ruth in [facility]. Did not feel there would be any need for additional interventions or escalation of care, therefore advised against the possibility of transfer. Recommendations are appreciated, may consider starting patient on apixaban or Lovenox tomorrow. EKG in the ED did not demonstrate any right heart strain Ordered echo We will continue to monitor on telemetry, continuous pulse ox reevaluate need for supplemental oxygen. 2. Left lower extremity DVT: Continue anticoagulation as mentioned above, avoid compression stockings. 3. Tobacco abuse disorder: Nicotine patch 21 mg
[2021-03-28] MEDS ORDERED: Lactated Ringers 1,000 ML IV SCH (17:30)
[2021-03-28 18:18] LABS: BLOOD UREA NITROGEN,BUN 15 mg/dL (7.0-18.0); CARBON DIOXIDE,CO2 25.4 mmol/L (21.0-32.0); CHLORIDE,CL 105 mmol/L (98-107); GLUCOSE RANDOM 97 mg/dL (74-106); POTASSIUM,K 4.4 mmol/L (3.5-5.1); SODIUM,NA 140 mmol/L (136-145)
--- NOTE | 2021-03-28 19:52 | PCM.EKG ---
#1 Interpretation EKG Date: 03/28/21 Time: 16:51 Rhythm: NSR Rate (Beats/Min): 60 [place]: Normal P-Wave: Present QRS: Normal ST-T: Normal (T wave inversion aVL and V2) QT: Normal Comparison: Change From Previous EKG (Prior 2019 showed no T wave inversion in avl and a t wave inversion in III) EKG Interpretation Comments: Sinus Rhythm with nonspecific T wave inversions
--- NOTE | 2021-03-28 20:02 | EDM.PDOC ---
ED HPI GENERAL MEDICAL PROBLEM - General Chief Complaint: Respiratory Problem Stated Complaint: BLOOD CLOTS Time Seen by Provider: 03/28/21 14:55 Source of Information: Reports: Patient, Provider History Limitations: Reports: No Limitations - History of Present Illness INITIAL COMMENTS - FREE TEXT/NARRATIVE: CHIEF COMPLAINT(S): Sent in from [facility] HISTORY OF PRESENT ILLNESS: This is a 55-year-old woman with a past medical history of tobacco use disorder, type 2 diabetes mellitus who comes to the emergency department with a chief complaint of sent in from [facility]. 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 She made an appointment with [facility]. She states that they diagnosed her with a clot in her leg and her lung and sent her to the emergency department. She states that she has never had any clots in her past and denies any recent surgery. She states that she did have a 8-hour drive to [place] last week. She denies any chest pain, syncope, dizziness, abdominal pain, nausea or vomiting. She denies any weight loss or night sweats. She denies any other symptoms such as fevers but states that she does have shortness of breath when walking. She denies any cough. She denies any other symptoms. REVIEW OF SYSTEMS: Constitutional: Denies fever, chills. Eyes: Denies eye pain Ears, Nose, Mouth, & Throat: Denies earache Cardiovascular: Positive for left lower extremity swelling denies chest pain Respiratory: Positive for exertional dyspnea gastrointestinal: Denies Nausea, vomiting, diarrhea, hematochezia. Genitourinary: Denies hematuria Skin:Denies a rash MSK: Denies joint pain Neurological: Denies blurred vision Psychiatric: Denies depression PAST MEDICAL HISTORY: As per history of present illness and as reviewed below otherwise noncontributory. SURGICAL HISTORY: As per history of present illness and as reviewed below otherwise noncontributory. SOCIAL HISTORY: As per history of present illness and as reviewed below otherwise noncontributory. FAMILY HISTORY: As per history of present illness and as reviewed below otherwise noncontributory. EXAMINATION OF ORGAN SYSTEMS/BODY AREAS: Constitutional: Blood pressure was 165/64, heart rate 79, respiratory rate 20 with an oxygen saturation of 95% on room air on my evaluation. Temperature 36 point General: Overall well-appearing woman who is in no acute distress Psychiatric: Appropriate mood and affect. Eyes: No scleral icterus or conjunctival erythema ENMT: Moist mucous membranes. No pharyngeal erythema Cardiovascular: Regular, rate, and rhythm. No gallops, murmurs, or rubs. Bilateral upper extremity pulses symmetric and intact. Left lower extremity with 2+ pitting edema. No obvious JVD. Respiratory: Lungs clear to auscultation bilaterally. No wheezes, rales, or rhonchi. Patient is speaking in full sentences Gastrointestinal: Soft, non-tender, non-distended. Normoactive bowel sounds Genitourinary: No suprapubic tenderness Musculoskeletal: Normal range of motion. Skin: No lesions or abrasions. Neurological: Alert, GCS 15 MEDICAL DECISION MAKING AND COURSE IN THE ED WITH INTERPRETATION/REVIEW OF DIAGNOSTIC STUDIES: This is a 55-year-old woman with a past medical history of tobacco use disorder who comes to the emergency department with diagnosed DVT and pulmonary embolism who was sent for evaluation. At this time the patient's vitals are normal. I did review the patient's work-up and results as below. surveillance monitor at this time did reveal sinus rhythm and pulse oximetry with good waveform was 95 to 96% on room air. I do not believe any repeat labs or additional labs are indicated. Labs from today reveal a CBC which is unremarkable D-dimer was elevated at 15.87. Imaging reviewed which did reveal a left lower extremity venous Doppler study which did reveal DVT involving the left mid and distal superficial femoral popliteal veins and in the left duplicated posterior tibial and peroneal veins. CT angiogram of the chest reveals a saddle emboli involving the right and left main pulmonary arteries extending into branch vessels to all lobes. Heart size is normal and there is no obvious evidence of right heart strain. Therefore at this time I did start the patient on heparin. We did obtain an EKG which did not reveal any acute ischemia or signs of right heart strain. I discussed with the patient that I like to admit her to the hospital. She was amenable to this plan. I contacted Dr. Duran who stated that he would come and evaluate the patient. Dr. Duran did come and evaluate the patient and spoke with cardiology and hospitalist and Bernard who recommended no intervention. He did accept the patient for admission. DISPOSITION: Patient was admitted to the hospital in stable condition CONDITION: Serious PROCEDURES: Cardiac monitoring interpretation, pulse oximetry interpretation FINAL IMPRESSION(S)/DIAGNOSES: 1. Acute saddle pulmonary emboli 2. Acute left lower extremity DVT Tate Tuttle M.D. Onset: Gradual left leg Pain Score (Numeric/FACES): 9 - Related Data Allergies Allergy/AdvReac Type Severity Reaction Status Date / Time No Known Allergies Allergy Verified 03/28/21 20:01 Home Meds: Home Meds . 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: Musculoskeletal History: Reports: Osteoarthritis Other Musculoskeletal History: hx of fx left wrist Neurological History: Reports: Concussion, Other (See Below) Other Neuro History: hx of motion sickness Psychiatric History: Reports: Depression Endocrine/Metabolic History: Reports: Obesity/BMI 30+ Other Endocrine/Metabolic History: denies diabetes Hematologic History: Reports: Anemia, B12 Deficiency Other Hematologic History: B12 deficiency in the past, currently iron deficient, just started iron supplement Immunologic History: Reports: None Oncologic (Cancer) History: Reports: None Dermatologic History: Reports: None - Infectious Disease History Infectious Disease History: Reports: Chicken Pox - Past Surgical History Head Surgeries/Procedures: Reports: None HEENT Surgical History: Reports: Tonsillectomy Cardiovascular Surgical History: Reports: None Respiratory Surgical History: Reports: None GI Surgical History: Reports: Bariatric Procedure Other GI Surgeries/Procedures: gastric bypass Female Surgical History: Reports: Section, Hysterectomy, Tubal Ligation Endocrine Surgical History: Reports: None Neurological Surgical History: Reports: None Musculoskeletal Surgical History: Reports: Knee Replacement, Other (See Below) Other Musculoskeletal Surgeries/Procedures:: Right RTCR Oncologic Surgical History: Reports: None Social & Family History - Family History Family Medical History: No Pertinent Family History - Tobacco Use Packs/Tins Daily: 1 - Caffeine Use Caffeine Use: Reports: None - Recreational Drug Use Recreational Drug Use: No ED ROS GENERAL - Review of Systems Review Of Systems: See Below ED EXAM, GENERAL - Physical Exam Exam: See Below Peripheral Pulses: 2+: Carotid (L), Carotid (R), Dorsalis Pedis (L), Dorsalis Pedis (R) GI/Abdominal: Normal Bowel Sounds, Soft, Non-Tender, No Mass. No: Distended, Guarding, Rigid, Rebound, Tender Back Exam: Normal Inspection, Full Range of Motion. No: CVA Tenderness (L), CVA Tenderness (R) Extremities: Normal Capillary Refill, Pedal Edema, Joint Swelling, Lowell's Sign, Leg Pain, Increased Warmth, Redness Course - Vital Signs Last Recorded V/S: Last Vital Signs Temp 36.9 C 03/28/21 19:51 Pulse 65 03/28/21 19:51 Resp 18 03/28/21 19:51 BP 173/79 H 03/28/21 19:51 Pulse Ox 97 03/28/21 19:51 - Orders/Labs/Meds Orders: Active Orders 24 hr Category Date Time Status EKG 12 Lead [EKG Documentation Completion] [RC] STAT Care 03/28/21 16:33 Active PTT,PARTIAL THROMBOPLSTIN TIME [COAG] Q6H Lab 03/28/21 15:45 Ordered PTT,PARTIAL THROMBOPLSTIN TIME [COAG] Q6H Lab 03/28/21 21:45 Ordered PTT,PARTIAL THROMBOPLSTIN TIME [COAG] Q6H Lab 03/29/21 03:45 Ordered PTT,PARTIAL THROMBOPLSTIN TIME [COAG] Q6H Lab 03/29/21 09:45 Ordered PTT,PARTIAL THROMBOPLSTIN TIME [COAG] Q6H Lab 03/29/21 15:45 Ordered PTT,PARTIAL THROMBOPLSTIN TIME [COAG] Q6H Lab 03/29/21 21:45 Ordered PTT,PARTIAL THROMBOPLSTIN TIME [COAG] Q6H Lab 03/30/21 03:45 Ordered Heparin Sodium/0.45% NaCl [Heparin 25,000 Units in 1/2 Med 03/28/21 15:45 Active NS 500 ML] 500 ml IV TITRATE Medication Orders Acetaminophen (Acetaminophen 325 Mg Tab) 650 mg PO Q4H PRN PRN Reason: Pain (Mild 1-3)/fever Heparin Sodium/Sodium Chloride (Heparin 25,000 Units In 1/2 Ns 500 Ml) 500 mls @ 41.476 mls/hr IV TITRATE VANESSA; Protocol Last Admin: 03/28/21 16:27 Dose: 18 units/kg/hr, 41.476 mls/hr Documented by: PAULETTE Gilesigned by: PHILLIP Lactated Ringer's (Ringers, Lactated) 1,000 mls @ 125 mls/hr IV ASDIRECTED VANESSA Nicotine (Nicotine 21 Mg/24 Hr Patch) 21 mg TRDERM DAILY VANESSA Ondansetron HCl (Ondansetron 4 Mg Tab.Dis) 4 mg PO Q4H PRN PRN Reason: nausea, able to take PO Labs: Laboratory Tests 03/28/21 03/28/21 Range/Units 14:55 14:55 INR 0.95 APTT 24.3 (18.6-31.3) SEC Meds: Medications Generic Name Dose Route Start Last Admin Trade Name Freq PRN Reason Stop Dose Admin Acetaminophen 650 mg 03/28/21 17:16 Acetaminophen 325 Mg Tab PO Q4H PRN Pain (Mild 1-3)/fever Heparin Sodium/Sodium Chloride 500 mls @ 41.476 mls/hr 03/28/21 15:45 03/28/21 16:27 Heparin 25,000 Units In 1/2 Ns 500 Ml IV 18 units/kg/hr TITRATE VANESSA 41.476 mls/hr Administration Protocol 18 UNITS/KG/HR Lactated Ringer's 1,000 mls @ 125 mls/hr 03/28/21 17:30 Ringers, Lactated IV ASDIRECTED VANESSA Nicotine 21 mg 03/29/21 09:00 Nicotine 21 Mg/24 Hr Patch TRDERM DAILY [facility] Ondansetron HCl 4 mg 03/28/21 17:16 Ondansetron 4 Mg Tab.Dis PO Q4H PRN nausea, able to take PO Discontinued Medications Generic Name Dose Route Start Last Admin Trade Name Freq PRN Reason Stop Dose Admin Heparin Sodium (Porcine) 5,000 units 03/28/21 15:34 03/28/21 16:27 Heparin Sodium 5,000 Units/Ml Vial IVPUSH 03/28/21 15:35 5,000 units .BOLUS ONE Administration Protocol Departure - Departure Time of Disposition: 18:07 Disposition: Admitted As Inpatient 64 Condition: Serious Clinical Impression: DVT (deep venous thrombosis), Saddle pulmonary embolus - Discharge Information Sepsis Event Note (ED) - Evaluation Sepsis Screening Result: No Definite Risk - Focused Exam Vital Signs: Vital Signs Temp Pulse Resp BP Pulse Ox 03/28/21 16:41 65 17 169/84 H 98 03/28/21 15:41 62 16 167/84 H 96 03/28/21 14:45 36.6 C 79 20 165/64 H 94 L - My Orders Last 24 Hours: My Active Orders 03/28/21 15:45 PTT,PARTIAL THROMBOPLSTIN TIME [COAG] Q6H Heparin Sodium/0.45% NaCl [Heparin 25,000 Units in 1/2 NS 500 ML] 500 ml IV TITRATE 03/28/21 16:33 EKG 12 Lead [EKG Documentation Completion] [RC] STAT 03/28/21 21:45 PTT,PARTIAL THROMBOPLSTIN TIME [COAG] Q6H 03/29/21 03:45 PTT,PARTIAL THROMBOPLSTIN TIME [COAG] Q6H 03/29/21 09:45 PTT,PARTIAL THROMBOPLSTIN TIME [COAG] Q6H 03/29/21 15:45 PTT,PARTIAL THROMBOPLSTIN TIME [COAG] Q6H 03/29/21 21:45 PTT,PARTIAL THROMBOPLSTIN TIME [COAG] Q6H 03/30/21 03:45 PTT,PARTIAL THROMBOPLSTIN TIME [COAG] Q6H - Assessment/Plan Last 24 Hours: My Active Orders 03/28/21 15:45 PTT,PARTIAL THROMBOPLSTIN TIME [COAG] Q6H Heparin Sodium/0.45% NaCl [Heparin 25,000 Units in 1/2 NS 500 ML] 500 ml IV TITRATE 03/28/21 16:33 EKG 12 Lead [EKG Documentation Completion] [RC] STAT 03/28/21 21:45 PTT,PARTIAL THROMBOPLSTIN TIME [COAG] Q6H 03/29/21 03:45 PTT,PARTIAL THROMBOPLSTIN TIME [COAG] Q6H 03/29/21 09:45 PTT,PARTIAL THROMBOPLSTIN TIME [COAG] Q6H 03/29/21 15:45 PTT,PARTIAL THROMBOPLSTIN TIME [COAG] Q6H 03/29/21 21:45 PTT,PARTIAL THROMBOPLSTIN TIME [COAG] Q6H 03/30/21 03:45 PTT,PARTIAL THROMBOPLSTIN TIME [COAG] Q6H
[2021-03-29 04:35] LABS: BLOOD UREA NITROGEN,BUN 14 mg/dL (7.0-18.0); CARBON DIOXIDE,CO2 25.5 mmol/L (21.0-32.0); CHLORIDE,CL 105 mmol/L (98-107); GLUCOSE RANDOM 93 mg/dL (74-106); POTASSIUM,K 4.2 mmol/L (3.5-5.1); SODIUM,NA 141 mmol/L (136-145)
[2021-03-29] MEDS: Heparin Sodium/0.45% NaCl 500 ML IV SCH (08:35)
[2021-03-29] MEDS: Nicotine 21 MG/24 Hr Patch TRDERM SCH (08:37)
[2021-03-29] MEDS ORDERED: Heparin Sodium 5,000 Units/ML Vial IVPUSH ONE (10:43)
[2021-03-29] MEDS: Apixaban 5 MG Tab PO SCH ×2 (12:06→21:17)
--- NOTE | 2021-03-29 19:24 | PCM.PN ---
<Lea Guajardo - Last Filed: 03/30/21 20:24> - General Info Date of Service: 03/29/21 Admission Dx/Problem (Free Text): Admission Diagnosis/Problem Admission Diagnosis/Problem saddle pulmonary embolism and DVT Subjective Update: 55-year-old female was admitted with saddle pulmonary embolism and DVT in her left lower extremity, started on heparin drip. There were no overnight events. This morning patient states that she is much improved, denies any shortness of breath, difficulty breathing, pain, edema, erythema and tightness in lower ex tremity have improved. Functional Status: Reports: Pain Controlled, Tolerating Diet, Ambulating, Urinating - Review of Systems General: Reports: No Symptoms HEENT: Reports: No Symptoms Pulmonary: Reports: No Symptoms Cardiovascular: Reports: No Symptoms Gastrointestinal: Reports: No Symptoms Genitourinary: Reports: No Symptoms Musculoskeletal: Reports: No Symptoms Skin: Reports: No Symptoms Neurological: Reports: No Symptoms Psychiatric: Reports: No Symptoms - Patient Data Vitals - Most Recent: Last Vital Signs Temp 98.0 F 03/29/21 16:00 Pulse 69 03/29/21 16:00 Resp 20 03/29/21 16:00 BP 139/62 03/29/21 16:00 Pulse Ox 92 L 03/29/21 16:00 Weight - Most Recent: 113.897 kg I&O - Last 24 Hours: Intake & Output 03/29/21 03/29/21 03/29/21 06:59 14:59 22:59 Intake Total 1124 Output Total 1100 Balance 24 Lab Results Last 24 Hours: Laboratory Results - last 24 hr 03/28/21 03/29/21 03/29/21 Range/Units 20:30 00:32 03:56 WBC (4.0-11.0) K/uL RBC (4.30-5.90) M/uL Hgb (12.0-16.0) g/dL Hct (36.0-46.0) % MCV (80.0-98.0) fL MCH (27.0-32.0) pg MCHC (31.0-37.0) g/dL RDW Std Deviation (28.0-62.0) fl RDW Coeff of Milly (11.0-15.0) % Plt Count (150-400) K/uL MPV (7.40-12.00) fL Neut % (Auto) (48.0-80.0) % Lymph % (Auto) (16.0-40.0) % Steele % (Auto) (0.0-15.0) % Eos % (Auto) (0.0-7.0) % Baso % (Auto) (0.0-1.5) % Neut # (Auto) (1.4-5.7) K/uL Lymph # (Auto) (0.6-2.4) K/uL Steele # (Auto) (0.0-0.8) K/uL Eos # (Auto) (0.0-0.7) K/uL Baso # (Auto) (0.0-0.1) K/uL Nucleated RBC % /100WBC Nucleated RBCs # K/uL APTT 118.5 H 88.3 H (18.6-31.3) SEC Sodium (136-145) mmol/L Potassium (3.5-5.1) mmol/L Chloride (98-107) mmol/L Carbon Dioxide (21.0-32.0) mmol/L BUN (7.0-18.0) mg/dL Creatinine (0.6-1.0) mg/dL Est Cr Clr Drug Dosing mL/min Estimated GFR (MDRD) ml/min Glucose (74-106) mg/dL POC Glucose 86 (70-99) mg/dL Calcium (8.5-10.1) mg/dL Total Bilirubin (0.2-1.0) mg/dL AST (15-37) IU/L ALT (14-63) IU/L Alkaline Phosphatase (46-116) U/L Troponin I (0.000-0.056) ng/mL Total Protein (6.4-8.2) g/dL Albumin (3.4-5.0) g/dL Globulin (2.6-4.0) g/dL Albumin/Globulin Ratio (0.9-1.6) 03/29/21 03/29/21 03/29/21 Range/Units 04:10 04:10 04:10 WBC 6.70 (4.0-11.0) K/uL RBC 5.03 (4.30-5.90) M/uL Hgb 13.6 (12.0-16.0) g/dL Hct 41.7 (36.0-46.0) % MCV 82.9 (80.0-98.0) fL MCH 27.0 (27.0-32.0) pg MCHC 32.6 (31.0-37.0) g/dL RDW Std Deviation 45.5 (28.0-62.0) fl RDW Coeff of Milly 15 (11.0-15.0) % Plt Count 171 (150-400) K/uL MPV 10.70 (7.40-12.00) fL Neut % (Auto) 52.7 (48.0-80.0) % Lymph % (Auto) 33.3 (16.0-40.0) % Steele % (Auto) 9.7 (0.0-15.0) % Eos % (Auto) 3.7 (0.0-7.0) % Baso % (Auto) 0.6 (0.0-1.5) % Neut # (Auto) 3.5 (1.4-5.7) K/uL Lymph # (Auto) 2.2 (0.6-2.4) K/uL Steele # (Auto) 0.7 (0.0-0.8) K/uL Eos # (Auto) 0.3 (0.0-0.7) K/uL Baso # (Auto) 0.0 (0.0-0.1) K/uL Nucleated RBC % 0.0 /100WBC Nucleated RBCs # 0 K/uL APTT 91.1 H (18.6-31.3) SEC Sodium 141 (136-145) mmol/L Potassium 4.2 (3.5-5.1) mmol/L Chloride 105 (98-107) mmol/L Carbon Dioxide 25.5 (21.0-32.0) mmol/L BUN 14 (7.0-18.0) mg/dL Creatinine 0.9 (0.6-1.0) mg/dL Est Cr Clr Drug Dosing 59.55 mL/min Estimated GFR (MDRD) > 60.0 ml/min Glucose 93 (74-106) mg/dL POC Glucose (70-99) mg/dL Calcium 8.1 L (8.5-10.1) mg/dL Total Bilirubin 0.4 (0.2-1.0) mg/dL AST 21 (15-37) IU/L ALT 19 (14-63) IU/L Alkaline Phosphatase 91 (46-116) U/L Troponin I (0.000-0.056) ng/mL Total Protein 6.5 (6.4-8.2) g/dL Albumin 3.0 L (3.4-5.0) g/dL Globulin 3.5 (2.6-4.0) g/dL Albumin/Globulin Ratio 0.9 (0.9-1.6) 03/29/21 03/29/21 03/29/21 Range/Units 07:06 09:53 09:53 WBC (4.0-11.0) K/uL RBC (4.30-5.90) M/uL Hgb (12.0-16.0) g/dL Hct (36.0-46.0) % MCV (80.0-98.0) fL MCH (27.0-32.0) pg MCHC (31.0-37.0) g/dL RDW Std Deviation (28.0-62.0) fl RDW Coeff of Milly (11.0-15.0) % Plt Count (150-400) K/uL MPV (7.40-12.00) fL Neut % (Auto) (48.0-80.0) % Lymph % (Auto) (16.0-40.0) % Steele % (Auto) (0.0-15.0) % Eos % (Auto) (0.0-7.0) % Baso % (Auto) (0.0-1.5) % Neut # (Auto) (1.4-5.7) K/uL Lymph # (Auto) (0.6-2.4) K/uL Steele # (Auto) (0.0-0.8) K/uL Eos # (Auto) (0.0-0.7) K/uL Baso # (Auto) (0.0-0.1) K/uL Nucleated RBC % /100WBC Nucleated RBCs # K/uL APTT 47.8 H (18.6-31.3) SEC Sodium (136-145) mmol/L Potassium (3.5-5.1) mmol/L Chloride (98-107) mmol/L Carbon Dioxide (21.0-32.0) mmol/L BUN (7.0-18.0) mg/dL Creatinine (0.6-1.0) mg/dL Est Cr Clr Drug Dosing mL/min Estimated GFR (MDRD) ml/min Glucose (74-106) mg/dL POC Glucose 92 (70-99) mg/dL Calcium (8.5-10.1) mg/dL Total Bilirubin (0.2-1.0) mg/dL AST (15-37) IU/L ALT (14-63) IU/L Alkaline Phosphatase (46-116) U/L Troponin I < 0.050 (0.000-0.056) ng/mL Total Protein (6.4-8.2) g/dL Albumin (3.4-5.0) g/dL Globulin (2.6-4.0) g/dL Albumin/Globulin Ratio (0.9-1.6) Med Orders - Current: Current Medications Acetaminophen (Acetaminophen 325 Mg Tab) 650 mg PO Q4H PRN PRN Reason: Pain (Mild 1-3)/fever Apixaban (Apixaban 5 Mg Tab) 10 mg PO BID [facility] Last Admin: 03/29/21 12:06 Dose: 10 mg Documented by: Nicotine (Nicotine 21 Mg/24 Hr Patch) 21 mg TRDERM DAILY [facility] Last Admin: 03/29/21 08:37 Dose: 21 mg Documented by: Ondansetron HCl (Ondansetron 4 Mg Tab.Dis) 4 mg PO Q4H PRN PRN Reason: nausea, able to take PO Discontinued Medications Heparin Sodium (Porcine) (Heparin Sodium 5,000 Units/Ml Vial) 5,000 units IVPUSH .BOLUS ONE; Protocol Stop: 03/28/21 15:35 Last Admin: 03/28/21 16:27 Dose: 5,000 units Documented by: Heparin Sodium (Porcine) (Heparin Sodium 5,000 Units/Ml Vial) 1,500 units IVPUSH .BOLUS ONE Stop: 03/29/21 10:44 Last Admin: 03/29/21 10:57 Dose: 1,500 units Documented by: Heparin Sodium/Sodium Chloride (Heparin 25,000 Units In 1/2 Ns 500 Ml) 500 mls @ 41.476 mls/hr IV TITRATE VANESSA; Protocol Last Titration: 03/29/21 12:07 Dose: 0 units/kg/hr, 0 mls/hr Documented by: Lactated Ringer's (Ringers, Lactated) 1,000 mls @ 125 mls/hr IV ASDIRECTED VANESSA Last Admin: 03/28/21 20:44 Dose: 125 mls/hr Documented by: - Exam Quality Assessment: DVT Prophylaxis (Currently on heparin drip and transition to oral apixaban) General: Alert, Oriented, Cooperative, No Acute Distress HEENT: Pupils Equal, Pupils Reactive, EOMI, Mucous Membr. Moist/[place] Neck: Supple Lungs: Clear to Auscultation, Normal Respiratory Effort Cardiovascular: Regular Rate, Regular Rhythm GI/Abdominal Exam: Normal Bowel Sounds, Soft, Non-Tender Back Exam: Normal Inspection, Full Range of Motion Extremities: Normal Inspection, Normal Range of Motion, Normal Capillary Refill Peripheral Pulses: 2+: Carotid (L), Carotid (R), Dorsalis Pedis (L), Dorsalis Pedis (R) Skin: Warm, Dry, Intact Neurological: No New Focal Deficit Psy/Mental Status: Alert, Normal Affect, Normal Mood - Patient Data Lab Results Last 24 hrs: Laboratory Results - last 24 hr 03/28/21 03/29/21 03/29/21 Range/Units 20:30 00:32 03:56 WBC (4.0-11.0) K/uL RBC (4.30-5.90) M/uL Hgb (12.0-16.0) g/dL Hct (36.0-46.0) % MCV (80.0-98.0) fL MCH (27.0-32.0) pg MCHC (31.0-37.0) g/dL RDW Std Deviation (28.0-62.0) fl RDW Coeff of Milly (11.0-15.0) % Plt Count (150-400) K/uL MPV (7.40-12.00) fL Neut % (Auto) (48.0-80.0) % Lymph % (Auto) (16.0-40.0) % Steele % (Auto) (0.0-15.0) % Eos % (Auto) (0.0-7.0) % Baso % (Auto) (0.0-1.5) % Neut # (Auto) (1.4-5.7) K/uL Lymph # (Auto) (0.6-2.4) K/uL Steele # (Auto) (0.0-0.8) K/uL Eos # (Auto) (0.0-0.7) K/uL Baso # (Auto) (0.0-0.1) K/uL Nucleated RBC % /100WBC Nucleated RBCs # K/uL APTT 118.5 H 88.3 H (18.6-31.3) SEC Sodium (136-145) mmol/L Potassium (3.5-5.1) mmol/L Chloride (98-107) mmol/L Carbon Dioxide (21.0-32.0) mmol/L BUN (7.0-18.0) mg/dL Creatinine (0.6-1.0) mg/dL Est Cr Clr Drug Dosing mL/min Estimated GFR (MDRD) ml/min Glucose (74-106) mg/dL POC Glucose 86 (70-99) mg/dL Calcium (8.5-10.1) mg/dL Total Bilirubin (0.2-1.0) mg/dL AST (15-37) IU/L ALT (14-63) IU/L Alkaline Phosphatase (46-116) U/L Troponin I (0.000-0.056) ng/mL Total Protein (6.4-8.2) g/dL Albumin (3.4-5.0) g/dL Globulin (2.6-4.0) g/dL Albumin/Globulin Ratio (0.9-1.6) 03/29/21 03/29/21 03/29/21 Range/Units 04:10 04:10 04:10 WBC 6.70 (4.0-11.0) K/uL RBC 5.03 (4.30-5.90) M/uL Hgb 13.6 (12.0-16.0) g/dL Hct 41.7 (36.0-46.0) % MCV 82.9 (80.0-98.0) fL MCH 27.0 (27.0-32.0) pg MCHC 32.6 (31.0-37.0) g/dL RDW Std Deviation 45.5 (28.0-62.0) fl RDW Coeff of Milly 15 (11.0-15.0) % Plt Count 171 (150-400) K/uL MPV 10.70 (7.40-12.00) fL Neut % (Auto) 52.7 (48.0-80.0) % Lymph % (Auto) 33.3 (16.0-40.0) % Steele % (Auto) 9.7 (0.0-15.0) % Eos % (Auto) 3.7 (0.0-7.0) % Baso % (Auto) 0.6 (0.0-1.5) % Neut # (Auto) 3.5 (1.4-5.7) K/uL Lymph # (Auto) 2.2 (0.6-2.4) K/uL Steele # (Auto) 0.7 (0.0-0.8) K/uL Eos # (Auto) 0.3 (0.0-0.7) K/uL Baso # (Auto) 0.0 (0.0-0.1) K/uL Nucleated RBC % 0.0 /100WBC Nucleated RBCs # 0 K/uL APTT 91.1 H (18.6-31.3) SEC Sodium 141 (136-145) mmol/L Potassium 4.2 (3.5-5.1) mmol/L Chloride 105 (98-107) mmol/L Carbon Dioxide 25.5 (21.0-32.0) mmol/L BUN 14 (7.0-18.0) mg/dL Creatinine 0.9 (0.6-1.0) mg/dL Est Cr Clr Drug Dosing 59.55 mL/min Estimated GFR (MDRD) > 60.0 ml/min Glucose 93 (74-106) mg/dL POC Glucose (70-99) mg/dL Calcium 8.1 L (8.5-10.1) mg/dL Total Bilirubin 0.4 (0.2-1.0) mg/dL AST 21 (15-37) IU/L ALT 19 (14-63) IU/L Alkaline Phosphatase 91 (46-116) U/L Troponin I (0.000-0.056) ng/mL Total Protein 6.5 (6.4-8.2) g/dL Albumin 3.0 L (3.4-5.0) g/dL Globulin 3.5 (2.6-4.0) g/dL Albumin/Globulin Ratio 0.9 (0.9-1.6) 03/29/21 03/29/21 03/29/21 Range/Units 07:06 09:53 09:53 WBC (4.0-11.0) K/uL RBC (4.30-5.90) M/uL Hgb (12.0-16.0) g/dL Hct (36.0-46.0) % MCV (80.0-98.0) fL MCH (27.0-32.0) pg MCHC (31.0-37.0) g/dL RDW Std Deviation (28.0-62.0) fl RDW Coeff of Milly (11.0-15.0) % Plt Count (150-400) K/uL MPV (7.40-12.00) fL Neut % (Auto) (48.0-80.0) % Lymph % (Auto) (16.0-40.0) % Steele % (Auto) (0.0-15.0) % Eos % (Auto) (0.0-7.0) % Baso % (Auto) (0.0-1.5) % Neut # (Auto) (1.4-5.7) K/uL Lymph # (Auto) (0.6-2.4) K/uL Steele # (Auto) (0.0-0.8) K/uL Eos # (Auto) (0.0-0.7) K/uL Baso # (Auto) (0.0-0.1) K/uL Nucleated RBC % /100WBC Nucleated RBCs # K/uL APTT 47.8 H (18.6-31.3) SEC Sodium (136-145) mmol/L Potassium (3.5-5.1) mmol/L Chloride (98-107) mmol/L Carbon Dioxide (21.0-32.0) mmol/L BUN (7.0-18.0) mg/dL Creatinine (0.6-1.0) mg/dL Est Cr Clr Drug Dosing mL/min Estimated GFR (MDRD) ml/min Glucose (74-106) mg/dL POC Glucose 92 (70-99) mg/dL Calcium (8.5-10.1) mg/dL Total Bilirubin (0.2-1.0) mg/dL AST (15-37) IU/L ALT (14-63) IU/L Alkaline Phosphatase (46-116) U/L Troponin I < 0.050 (0.000-0.056) ng/mL Total Protein (6.4-8.2) g/dL Albumin (3.4-5.0) g/dL Globulin (2.6-4.0) g/dL Albumin/Globulin Ratio (0.9-1.6) Result Diagrams: 03/30/21 05:42 03/30/21 05:42 Sepsis Event Note - Evaluation Sepsis Screening Result: No Definite Risk - Focused Exam Vital Signs: Vital Signs Temp Pulse Resp BP Pulse Ox 03/29/21 16:00 98.0 F 69 20 139/62 92 L 03/29/21 12:02 97 F 66 18 123/60 94 L - Problem List & Annotations (1) Pulmonary embolism SNOMED Code(s): 00060994 Code(s): I26.99 - OTHER PULMONARY EMBOLISM WITHOUT ACUTE COR PULMONALE Status: Acute (2) DVT (deep venous thrombosis) SNOMED Code(s): 626737771 Code(s): I82.409 - ACUTE EMBOLISM AND THOMBOS UNSP DEEP VN UNSP LOWER EXTREMITY Status: Acute (3) Tobacco abuse SNOMED Code(s): 557827125 Code(s): Z72.0 - TOBACCO USE Status: Acute - Problem List Review Problem List Initiated/Reviewed/Updated: Yes - My Orders Last 24 Hours: My Active Orders 03/28/21 19:16 Telemetry Monitoring [Cardiac Monitoring] [RC] . DIRECTED 03/29/21 09:00 Nicotine [Habitrol] 21 mg TRDERM DAILY 03/29/21 Dinner Regular Diet [DIET] 03/29/21 17:26 Echo Comp wo Cont [US] Stat 03/30/21 05:11 CBC WITH AUTO DIFF [HEME] AM COMPREHENSIVE METABOLIC PN,CMP [CHEM] AM 03/31/21 05:11 CBC WITH AUTO DIFF [HEME] AM COMPREHENSIVE METABOLIC PN,CMP [CHEM] AM - Plan Plan:: 55-year-old female admitted for saddle pulmonary embolism and DVT in her left lower extremity. 1. Pulmonary embolism: Improved, no acute distress, no shortness of breath, breathing comfortably at 93% O2 saturation on room air without any hypotension or tachycardia. Angiogram: Saddle emboli right and left main pulmonary emboli extending into branch vessels to all lobes. Venous Doppler study: Left lower extremity DVT, with positive Homans' sign on physical examination, erythema, edema, Started treatment on empiric anticoagulation with bolus of heparin, and heparin drip, with appropriate PTT monitoring. Consulted pulmonary critical care Dr. Ruth in [facility]. Did not feel there would be any need for additional interventions or escalation of care, therefore advised against the possibility of transfer. Patient will be stopped on heparin drip, has been appropriately anticoagulated and will be bridged to oral long-term anticoagulation apixaban. Starting at 10 mg twice daily for initial 7 days. Fortunately, EKG in the ED did not demonstrate any right heart strain, will order troponin. echo pending We will continue to monitor on telemetry, continuous pulse ox reevaluate need for supplemental oxygen. 2. Left lower extremity DVT: Continue anticoagulation as mentioned above, avoid compression stockings. 3. Tobacco abuse disorder: Nicotine patch 21 mg Dispo: Possible discharge tomorrow if patient continues to improve and remained stable, will keep today to ensure appropriate O2 requirements. Prior to discharge will have patient perform walking test to ensure no dyspnea on exertio n. <Stevo Salazar - Last Filed: 04/01/21 11:34> - Patient Data Vitals - Most Recent: Last Vital Signs Temp 35.7 C L 03/30/21 11:00 Pulse 53 L 03/30/21 11:00 Resp 18 03/30/21 11:00 BP 142/76 H 03/30/21 11:00 Pulse Ox 97 03/30/21 11:00 Med Orders - Current: Current Medications Discontinued Medications Acetaminophen (Acetaminophen 325 Mg Tab) 650 mg PO Q4H PRN PRN Reason: Pain (Mild 1-3)/fever Last Admin: 03/30/21 09:37 Dose: 650 mg Documented by: Apixaban (Apixaban 5 Mg Tab) 10 mg PO BID [facility] Last Admin: 03/30/21 09:40 Dose: 10 mg Documented by: Heparin Sodium (Porcine) (Heparin Sodium 5,000 Units/Ml Vial) 5,000 units IVPUSH .BOLUS ONE; Protocol Stop: 03/28/21 15:35 Last Admin: 03/28/21 16:27 Dose: 5,000 units Documented by: Heparin Sodium (Porcine) (Heparin Sodium 5,000 Units/Ml Vial) 1,500 units IVPUSH .BOLUS ONE Stop: 03/29/21 10:44 Last Admin: 03/29/21 10:57 Dose: 1,500 units Documented by: Heparin Sodium/Sodium Chloride (Heparin 25,000 Units In 1/2 Ns 500 Ml) 500 mls @ 41.476 mls/hr IV TITRATE VANESSA; Protocol Last Titration: 03/29/21 12:07 Dose: 0 units/kg/hr, 0 mls/hr Documented by: Lactated Ringer's (Ringers, Lactated) 1,000 mls @ 125 mls/hr IV ASDIRECTED VANESSA Last Admin: 03/28/21 20:44 Dose: 125 mls/hr Documented by: Nicotine (Nicotine 21 Mg/24 Hr Patch) 21 mg TRDERM DAILY [facility] Last Admin: 03/30/21 09:34 Dose: 21 mg Documented by: Ondansetron HCl (Ondansetron 4 Mg Tab.Dis) 4 mg PO Q4H PRN PRN Reason: nausea, able to take PO - Patient Data Result Diagrams: 03/30/21 05:42 03/30/21 05:42 - Plan Plan:: I have seen and evaluated the patient and agree with the residents note unless specified in my note
[2021-03-30 06:35] LABS: BLOOD UREA NITROGEN,BUN 16 mg/dL (7.0-18.0); CARBON DIOXIDE,CO2 25.8 mmol/L (21.0-32.0); CHLORIDE,CL 104 mmol/L (98-107); GLUCOSE RANDOM 125 mg/dL (74-106); SODIUM,NA 140 mmol/L (136-145)
[2021-03-30] MEDS: Nicotine 21 MG/24 Hr Patch TRDERM SCH (09:34)
[2021-03-30] MEDS: Apixaban 5 MG Tab PO SCH (09:40)
[2021-03-30 11:11] VITALS: BP 142/76; PULSE 53
--- NOTE | 2021-03-30 12:50 | PCM.DCSUM1 ---
Discharge Summary - Hospital Course Diagnosis: Stroke: No - Discharge Data Discharge Date: 03/30/21 Discharge Disposition: Home, Self-Care 01 Condition: Good - Referral to Home Health Primary Care Physician: PCP None - Patient Instructions Diet: Usual Diet as Tolerated Activity: As Tolerated, No Lifting Over 10 Pounds, No Strenuous Activities, Rest and Relax Today Driving: May Drive Today Showering/Bathing: May Shower Notify Provider of: Fever, Increased Pain, Swelling and Redness, Drainage, Nausea and/or Vomiting Other/Special Instructions: return to ER or call a doctor if you feel sob, chest pain is getting worse. check your pulse oxygen twice a day for next few days - Discharge Plan *PRESCRIPTION DRUG MONITORING PROGRAM REVIEWED*: No *COPY OF PRESCRIPTION DRUG MONITORING REPORT IN PATIENT JUAREZ: No Prescriptions/Med Rec: Apixaban [Eliquis] 10 mg PO BID #90 tablet Nicotine [Habitrol] 21 mg TRDERM DAILY #30 patch Home Medications: Home Meds Apixaban [Eliquis] 10 mg PO BID #90 tablet 03/30/21 [Rx] Nicotine [Habitrol] 21 mg TRDERM DAILY #30 patch 03/30/21 [Rx] Patient Handouts: Pulmonary Embolism, Deep Vein Thrombosis Referrals: Renae Cunha MD [Physician] - 04/05/21 2:30 pm - Patient Data Vitals - Most Recent: Last Vital Signs Temp 35.7 C L 03/30/21 11:00 Pulse 53 L 03/30/21 11:00 Resp 18 03/30/21 11:00 BP 142/76 H 03/30/21 11:00 Pulse Ox 97 03/30/21 11:00 Weight - Most Recent: 113.897 kg I&O - Last 24 hours: Intake & Output 03/29/21 03/30/21 03/30/21 22:59 06:59 14:59 Intake Total 1124 1000 Output Total 1100 900 Balance 24 100 Lab Results - Last 24 hrs: Laboratory Results - last 24 hr 03/30/21 03/30/21 Range/Units 05:42 05:42 WBC 5.81 (4.0-11.0) K/uL RBC 4.91 (4.30-5.90) M/uL Hgb 12.9 (12.0-16.0) g/dL Hct 40.9 (36.0-46.0) % MCV 83.3 (80.0-98.0) fL MCH 26.3 L (27.0-32.0) pg MCHC 31.5 (31.0-37.0) g/dL RDW Std Deviation 45.5 (28.0-62.0) fl RDW Coeff of Milly 15 (11.0-15.0) % Plt Count 196 (150-400) K/uL MPV 11.30 (7.40-12.00) fL Neut % (Auto) 55.0 (48.0-80.0) % Lymph % (Auto) 33.7 (16.0-40.0) % [place] % (Auto) 8.4 (0.0-15.0) % Eos % (Auto) 2.6 (0.0-7.0) % Baso % (Auto) 0.3 (0.0-1.5) % Neut # (Auto) 3.2 (1.4-5.7) K/uL Lymph # (Auto) 2.0 (0.6-2.4) K/uL [place] # (Auto) 0.5 (0.0-0.8) K/uL Eos # (Auto) 0.2 (0.0-0.7) K/uL Baso # (Auto) 0.0 (0.0-0.1) K/uL Nucleated RBC % 0.0 /100WBC Nucleated RBCs # 0 K/uL Sodium 140 (136-145) mmol/L Potassium 4.0 (3.5-5.1) mmol/L Chloride 104 (98-107) mmol/L Carbon Dioxide 25.8 (21.0-32.0) mmol/L BUN 16 (7.0-18.0) mg/dL Creatinine 0.9 (0.6-1.0) mg/dL Est Cr Clr Drug Dosing 59.55 mL/min Estimated GFR (MDRD) > 60.0 ml/min Glucose 125 H (74-106) mg/dL Calcium 8.2 L (8.5-10.1) mg/dL Total Bilirubin 0.5 (0.2-1.0) mg/dL AST 15 (15-37) IU/L ALT 18 (14-63) IU/L Alkaline Phosphatase 89 (46-116) U/L Total Protein 6.3 L (6.4-8.2) g/dL Albumin 2.9 L (3.4-5.0) g/dL Globulin 3.4 (2.6-4.0) g/dL Albumin/Globulin Ratio 0.9 (0.9-1.6) Med Orders - Current: Current Medications Acetaminophen (Acetaminophen 325 Mg Tab) 650 mg PO Q4H PRN PRN Reason: Pain (Mild 1-3)/fever Last Admin: 03/30/21 09:37 Dose: 650 mg Documented by: Apixaban (Apixaban 5 Mg Tab) 10 mg PO BID [facility] Last Admin: 03/30/21 09:40 Dose: 10 mg Documented by: Nicotine (Nicotine 21 Mg/24 Hr Patch) 21 mg TRDERM DAILY [facility] Last Admin: 03/30/21 09:34 Dose: 21 mg Documented by: Ondansetron HCl (Ondansetron 4 Mg Tab.Dis) 4 mg PO Q4H PRN PRN Reason: nausea, able to take PO Discontinued Medications Heparin Sodium (Porcine) (Heparin Sodium 5,000 Units/Ml Vial) 5,000 units IVPUSH .BOLUS ONE; Protocol Stop: 03/28/21 15:35 Last Admin: 03/28/21 16:27 Dose: 5,000 units Documented by: Heparin Sodium (Porcine) (Heparin Sodium 5,000 Units/Ml Vial) 1,500 units IVPUSH .BOLUS ONE Stop: 03/29/21 10:44 Last Admin: 03/29/21 10:57 Dose: 1,500 units Documented by: Heparin Sodium/Sodium Chloride (Heparin 25,000 Units In 1/2 Ns 500 Ml) 500 mls @ 41.476 mls/hr IV TITRATE VANESSA; Protocol Last Titration: 03/29/21 12:07 Dose: 0 units/kg/hr, 0 mls/hr Documented by: Lactated Ringer's (Ringers, Lactated) 1,000 mls @ 125 mls/hr IV ASDIRECTED VANESSA Last Admin: 03/28/21 20:44 Dose: 125 mls/hr Documented by:
--- NOTE | 2021-03-31 16:22 | ECHO ---
EXAM DATE: 03/28/21 PATIENT'S AGE: 55 The ECHO report has been scanned into [employer] and can be seen in this patient's EMR (Electronic Medical Record) under the REPORTS section. The report has also been scanned into PACS. [id number]
== END 2021-03-30 13:25 | disposition home or self-care (01) | DRG 197 ==
LOC: MW.ED 14:31 → MW.ICU 17:16 → MW.MS 18:07
PROVIDERS: ADMIT Internal Medicine; ATTEND Internal Medicine
DX: I82.402 Acute embolism and thrombosis of unspecified deep veins of left lower extremity (principal); I26.92 Saddle embolus of pulmonary artery without acute cor pulmonale; G47.30 Sleep apnea, unspecified; M19.90 Unspecified osteoarthritis, unspecified site; K21.9 Gastro-esophageal reflux disease without esophagitis; D64.9 Anemia, unspecified; E53.8 Deficiency of other specified B group vitamins; Z98.890 Other specified postprocedural states; F17.210 Nicotine dependence, cigarettes, uncomplicated; E66.9 Obesity, unspecified; F32.9 Major depressive disorder, single episode, unspecified; Z68.41 Body mass index [BMI] 40.0-44.9, adult
CPT/HCPCS: 36415; 80053; 82947; 84484; 85025; 85610; 85730; 93005; 93306; 96365; 99284; 99285-25; A9270-GY; J1644; J7120

== ENCOUNTER 2022-05-24 11:53 | Day surgery (SDC) | payer BC ==
[~2022-05-24 11:53] MED LIST changes: -Acetaminophen 1,000 MG in Premix Bag 1 BAG IV SCH; -Famotidine 20 MG/2 ML SDV IVPUSH SCH; -Ketorolac 30 MG/ML SDV IVPUSH SCH; +Lactated Ringers 1,000 ML IV SCH; -Ropivacaine 49.25 ML, Ketorolac 30 MG, EPINEPHrine 0.5 MG, cloNIDine 80 MCG in Sodium C... INJECT SCH; -Scopolamine 1.5 MG Transdermal Patch TRDERM SCH
[2022-05-24] MEDS ORDERED: Ketamine 500 mg/10 ML MDV ONE (12:44)
[2022-05-24] MEDS ORDERED: Propofol 200 MG/20 ML SDV ONE (12:44)
[2022-05-24] MEDS ORDERED: Midazolam 1 MG/ML 2 ML SDV ONE (12:44)
[2022-05-24] MEDS ORDERED: fentaNYL 100 MCG/2 ML SDV ONE (12:44)
[2022-05-24 13:46] VITALS: BP 169/74; PULSE 58
== END 2022-05-24 13:55 | disposition home or self-care (01) ==
LOC: MW.SDS 11:53
PROVIDERS: ATTEND Surgery
DX: Z12.11 Encounter for screening for malignant neoplasm of colon (principal); F17.210 Nicotine dependence, cigarettes, uncomplicated; I10 Essential (primary) hypertension; E03.9 Hypothyroidism, unspecified; E61.1 Iron deficiency; J44.9 Chronic obstructive pulmonary disease, unspecified; F41.9 Anxiety disorder, unspecified; F32.A Depression, unspecified; J30.9 Allergic rhinitis, unspecified; G47.33 Obstructive sleep apnea (adult) (pediatric); E53.8 Deficiency of other specified B group vitamins; E55.9 Vitamin D deficiency, unspecified; E66.9 Obesity, unspecified; K21.9 Gastro-esophageal reflux disease without esophagitis; M19.90 Unspecified osteoarthritis, unspecified site; I82.409 Acute embolism and thrombosis of unspecified deep veins of unspecified lower extremity; Z79.891 Long term (current) use of opiate analgesic; Z79.899 Other long term (current) drug therapy; Z98.890 Other specified postprocedural states; Z90.710 Acquired absence of both cervix and uterus; Z68.41 Body mass index [BMI] 40.0-44.9, adult; Z96.659 Presence of unspecified artificial knee joint
CPT/HCPCS: 00812; J2250; J2704; J3010; J3490; J7120

== ENCOUNTER 2022-05-31 06:32 | Day surgery (SDC) | payer BC ==
[~2022-05-31 06:32] MED LIST changes: +Acetaminophen 1,000 MG in Premix Bag 1 BAG IV SCH; +Heparin Sodium 5,000 Units/ML Vial ONE; +Heparin Sodium 5,000 Units/ML Vial SUBCUT ONE; -Lactated Ringers 1,000 ML IV SCH; +Pregabalin 75 MG Cap PO SCH; +ceFAZolin 2 GM in Premix Bag 1 BAG IV SCH
[2022-05-31] MEDS ORDERED: Heparin Sodium 5,000 Units/ML Vial SUBCUT ONE (07:15)
[2022-05-31] MEDS: Lactated Ringers 1,000 ML IV SCH ×2 (07:25→16:18)
[2022-05-31] MEDS ORDERED: Famotidine 20 MG/2 ML SDV ONE (07:30)
[2022-05-31] MEDS ORDERED: Ropivacaine 0.5% 5 MG/ML 30 ML SDV ONE (07:30)
[2022-05-31] MEDS ORDERED: Propofol 200 MG/20 ML SDV ONE (07:35)
[2022-05-31] MEDS ORDERED: fentaNYL 250 MCG/5 ML SDV ONE ×2 (07:35→09:45)
[2022-05-31] MEDS ORDERED: Bupivacaine 0.5% 30 ML SDV ONE (08:07)
[2022-05-31] MEDS ORDERED: Albuterol 0.083% 2.5 MG/3 ML Neb Soln NEB PRN (09:08)
[2022-05-31] MEDS ORDERED: Morphine 4 MG/ML VIAL IVPUSH PRN (09:08)
[2022-05-31] MEDS ORDERED: Naloxone 0.4 MG/ML SDV IVPUSH PRN (09:08)
[2022-05-31] MEDS ORDERED: Ondansetron 4 MG/2 ML SDV IVPUSH PRN ×2 (09:08→13:50)
[2022-05-31] MEDS ORDERED: HYDROmorphone 1 MG/ML Syringe IVPUSH PRN ×2 (09:08→13:50)
[2022-05-31] MEDS ORDERED: fentaNYL 50 MCG/ML SDV IVPUSH PRN (09:08)
[2022-05-31] MEDS ORDERED: Metoclopramide 10 MG/2 ML SDV IVPUSH PRN (09:08)
[2022-05-31] MEDS ORDERED: ceFAZolin 1 GM Vial ONE (09:19)
[2022-05-31] MEDS ORDERED: Rocuronium Bromide 50 MG/5 ML Syringe ONE ×2 (10:23→11:57)
[2022-05-31] MEDS ORDERED: ePHEDrine 50 MG/ML SDV ONE (10:23)
[2022-05-31] MEDS ORDERED: Ondansetron 4 MG/2 ML SDV ONE (12:42)
[2022-05-31] MEDS ORDERED: HYDROmorphone 2 MG/ML Syringe ONE (12:43)
[2022-05-31] MEDS ORDERED: Ketorolac 30 MG/ML SDV ONE (13:08)
[2022-05-31] MEDS ORDERED: Octyl 2-Cyanoacrylate 1 g/1 mL 1 APPLIC PEN ONE (13:24)
[2022-05-31] MEDS ORDERED: Heparin Sodium 5,000 Units/ML Vial SUBCUT SCH (18:00)
[2022-05-31] MEDS: Acetaminophen/HYDROcodone 325-5 MG Tab PO PRN (18:15)
[2022-06-01] MEDS: Acetaminophen/HYDROcodone 325-5 MG Tab PO PRN ×2 (01:55→10:43)
[2022-06-01 04:41] VITALS: BP 131/60
[2022-06-01] MEDS ORDERED: Omeprazole 20 MG Cap.CR PO SCH (07:30)
[2022-06-01 07:36] VITALS: PULSE 63
[2022-06-01] MEDS ORDERED: Heparin Sodium 5,000 Units/ML Vial SUBCUT SCH (08:00)
== END 2022-06-01 13:00 | disposition home or self-care (01) ==
LOC: MW.SDS 06:32 → MW.MS 13:35 → MW.SDS 06-01 13:00
PROVIDERS: ATTEND Surgery
DX: K43.2 Incisional hernia without obstruction or gangrene (principal); F41.9 Anxiety disorder, unspecified; F32.A Depression, unspecified; J44.9 Chronic obstructive pulmonary disease, unspecified; I10 Essential (primary) hypertension; E03.9 Hypothyroidism, unspecified; G47.33 Obstructive sleep apnea (adult) (pediatric); E55.9 Vitamin D deficiency, unspecified; E53.8 Deficiency of other specified B group vitamins; F17.210 Nicotine dependence, cigarettes, uncomplicated; K21.9 Gastro-esophageal reflux disease without esophagitis; Z79.899 Other long term (current) drug therapy; Z98.890 Other specified postprocedural states
CPT/HCPCS: 49654; A9270; C1781; J0131; J0690; J1170; J1644; J1885; J2704; J2795; J3010; J3490; J7120; J2405

== ENCOUNTER 2024-09-26 17:32 | Emergency (ER) | payer BC, MEDICARE ==
[2024-09-26 18:44] LABS: BASOPHILS ABSOLUTE AUTO 0.03 K/uL (0.00-0.20); BASOPHILS PERCENT AUTO 0.3 % (0.0-1.0); EOSINOPHILS ABSOLUTE AUTO 0.02 K/uL (0.00-0.45); EOSINOPHILS PERCENT AUTO 0.2 % (0.0-6.0); HEMATOCRIT 40.9 % (37.0-47.0); HEMOGLOBIN 13.6 g/dL (12.0-16.0); IMMATURE GRAN ABSOLUTE AUTO 0.02 K/uL (0.00-0.05); IMMATURE GRAN PERCENT AUTO 0.2 % (0.0-0.4); LYMPHOCYTES ABSOLUTE AUTO 1.33 K/uL (1.00-4.80); LYMPHOCYTES PERCENT AUTO 14.9 % (24.0-44.0); MEAN CORPUSCULAR HEMOGLOBIN 27.8 pg (28.0-32.0); MEAN CORPUSCULAR HGB CONC 33.3 g/dL (32.0-36.0); MEAN CORPUSCULAR VOLUME 83.6 fL (83.0-99.0); MEAN PLATELET VOLUME 11.1 fL (9.4-12.3); MONOCYTES ABSOLUTE AUTO 0.72 K/uL (0.00-0.80); MONOCYTES PERCENT AUTO 8.1 % (0.0-8.0); NEUTROPHILS ABSOLUTE AUTO 6.79 K/uL (1.80-7.70); NEUTROPHILS PERCENT AUTO 76.3 % (41.0-71.0); PLATELET COUNT,PLT 186 K/uL (150-400); RED BLOOD CELL COUNT 4.89 M/uL (4.10-5.30); WHITE BLOOD CELL COUNT,WBC 8.91 K/uL (3.9-11.3)
[2024-09-26 19:19] LABS: A/G RATIO 0.8 (0.9-1.6); ALANINE AMINOTRANSFERASE,ALT 18 IU/L (14-63); ALBUMIN 3.1 g/dL (3.4-5.0); ALKALINE PHOSPHATASE 104 U/L (46-116); ASPARTATE AMNIOTRANSFERASE,AST 15 IU/L (15-37); BILIRUBIN TOTAL 0.7 mg/dL (0.2-1.0); BLOOD UREA NITROGEN,BUN 12 mg/dL (7.0-18.0); CALCIUM 8.8 mg/dL (8.5-10.1); CARBON DIOXIDE,CO2 25.2 mmol/L (21.0-32.0); CHLORIDE,CL 105 mmol/L (98-107); CREATININE 1.2 mg/dL (0.6-1.0); GLUCOSE RANDOM 114 mg/dL (74-106); PROTEIN TOTAL,TP 6.9 g/dL (6.4-8.2); SODIUM,NA 141 mmol/L (136-145)
[2024-09-26 19:20] LABS: ESTIMATED GFR 52 mL/min (>60)
[2024-09-26] MEDS: Iopamidol 755 MG/ML 500 ML Multipack Bottle IVPUSH ONE (19:38)
[2024-09-26 21:03] LABS: INR 1.06 (0.86-1.11); PTT,PARTIAL THROMBOPLSTIN TIME 28.1 SEC (23.9-30.7)
[2024-09-26] MEDS: Heparin Sodium/0.45% NaCl 25,000 UNITS/250 ML BAG IV SCH (21:04)
[2024-09-26] MEDS: Heparin Sodium 5,000 Units/ML Vial IVPUSH ONE (21:04)
[2024-09-26] MEDS ORDERED: Heparin Sodium/0.45% NaCl 25,000 UNITS/250 ML BAG IV SCH (21:15)
[2024-09-27 00:15] VITALS: BP 170/75; PULSE 81
== END 2024-09-27 00:46 ==
LOC: MW.ED 17:32
DX: I26.09 Other pulmonary embolism with acute cor pulmonale (principal); I10 Essential (primary) hypertension; E66.9 Obesity, unspecified; Z90.710 Acquired absence of both cervix and uterus; Z75.8 Other problems related to medical facilities and other health care; Z79.899 Other long term (current) drug therapy
CPT/HCPCS: 36415; 71045; 71275; 80053; 83880; 84484; 85025; 85610; 85730; 93005; 96360; 96361; 99285; J1644; Q9967; 93010; 99291